=== PATIENT | female | born 1960 | race African-American/Black ===

== ENCOUNTER 2019-12-13 15:41 | Inpatient (IN) | payer MEDICARE ==
[~2019-12-13] VITALS: Ht 147.3 cm; Wt 69.4 kg
--- NOTE | 2019-12-13 15:42 | NUR ---
ED Nurse Note:pt. was BIBA from home with c/o abdominal apin nausea and vomiting
[2019-12-13 16:23] VITALS: BP 110/58
[2019-12-13 16:42] LABS: BASOPHILS % (AUTO) 1.8 % (0.0-2.0); EOSINOPHILS % (AUTO) 1.5 % (0.0-3.0); HEMATOCRIT 30.7 % (37.0-47.0); LYMPHOCYTES % (AUTO) 52.1 % (20.0-45.0); MEAN CORPUSCULAR VOLUME 83 FL (80-99); MONOCYTES % (AUTO) 5.3 % (1.0-10.0); NEUTROPHILS % (AUTO) 39.3 % (45.0-75.0); PLATELET COUNT 137 K/UL (150-450); RED BLOOD COUNT 3.68 M/UL (4.20-5.40); RED CELL DISTRIBUTION WIDTH 13.3 % (11.6-14.8); WHITE BLOOD COUNT 8.8 K/UL (4.8-10.8)
--- NOTE | 2019-12-13 16:52 | Emergency Room Report ---
History of Present Illness General Chief Complaint: Nausea, Vomiting, and Diarrhea Source: Patient Present Illness HPI 59-year-old female presents ED for evaluation. Brought in by EMS. Complaining of vomiting and diarrhea. Cramping pain. History of lupus. History of pancreatitis. States that she was recently admitted at another hospital in [place] and treated for pneumonia. Recently discharged. States she completed her antibiotics. States she has a port for TPN when she has the symptoms. Denies sick contacts or recent travel. No other aggravating relieving factors. Denies any other associated symptoms Allergies: Coded Allergies: ADHESIVE TAPE (Verified Allergy, Unknown, 12/13/19) DROPERIDOL (Verified Allergy, Unknown, 12/13/19) IBUPROFEN (Verified Allergy, Unknown, 12/13/19) LATEX (Verified Allergy, Unknown, 12/13/19) MORPHINE (Verified Allergy, Unknown, 12/13/19) VANCOMYCIN (Verified Allergy, Unknown, 12/13/19) Uncoded Allergies: CONTRAST (Allergy, Unknown, 12/13/19) ERYTHROMYCIN (Allergy, Unknown, 12/13/19) Patient History Past Medical History: DM, HTN, other - lupus Past Surgical History: none Pertinent Family History: none Social History: Denies: smoking, alcohol use, drug use Last Menstrual Period: NA Now: No Immunizations: UTD Reviewed Nursing Documentation: PMH: Agreed; PSxH: Agreed Nursing Documentation-PMH Past Medical History: No Stated History Hx Hypertension: Yes Hx Pacemaker: No Hx Asthma: No Hx COPD: No Hx Diabetes: Yes Hx Cancer: No Hx Gastrointestinal Problems: No Hx Dialysis: No History Of Psychiatric Problem: No Hx Neurological Problems: No Hx Cerebrovascular Accident: No Hx Seizures: No Review of Systems All Other Systems: negative except mentioned in HPI Physical Exam Vital Signs Date Time Temp Pulse Resp B/P (MAP) Pulse Ox O2 Delivery O2 Flow Rate FiO2 12/13/19 15:34 98.8 98 20 110/58 (75) 95 Room Air Sp02 EP Interpretation: reviewed, normal General Appearance: no apparent distress, alert, GCS 15, non-toxic Head: normocephalic, atraumatic Eyes: bilateral eye normal inspection, bilateral eye PERRL ENT: hearing grossly normal, normal pharynx, no angioedema, normal voice Neck: full range of motion, supple/symm/no masses Respiratory: chest non-tender, lungs clear, normal breath sounds, speaking full sentences Cardiovascular #1: regular rate, rhythm, no edema Cardiovascular #2: 2+ carotid (R), 2+ carotid (L), 2+ radial (R), 2+ radial (L) , 2+ dorsalis pedis (R), 2+ dorsalis pedis (L) Gastrointestinal: normal bowel sounds, non tender, soft, non-distended, no guarding, no rebound Rectal: deferred Genitourinary: normal inspection, no CVA tenderness Musculoskeletal: back normal, normal range of motion, gait/station normal, non- tender Neurologic: alert, motor strength/tone normal, oriented x3, sensory intact, responsive, speech normal Psychiatric: judgement/insight normal, memory normal, mood/affect normal, no suicidal/homicidal ideation Reflexes: 3+ bicep (R), 3+ bicep (L), 3+ tricep (R), 3+ tricep (L), 3+ knee (R) , 3+ knee (L) Lymphatic: no adenopathy Medical Decision Making Diagnostic Impression: Primary Impression: Colitis Additional Impressions: Generalized weakness Lupus ER Course Hospital Course 59 yo F presents with vomiting diarrhea. h/o lupus differential gastroenteritis, dehydration, lupus flare Clinical course Placed on stretcher. Initial history physical exam reveals middle-aged female in no acute distress. I ordered labs, IV fluids Labs - no leukocytosis, Hb/Hct stable. electrolytes ok After IV hydration I reassess patient. States that she still feels weak. States that typically when she gets this flareup due to her lupus she requires IV hydration and TPN. Case discussed with Dr. Turcios and he agreed to accept the patient to his service for further care and support I feel this is a highly complex case requiring extensive working including EKG/ Rhythm strip, Xray/CT/US, Blood/urine lab work, repeat exams while in ED, and administration of strong opiates/narcotics for pain control, admission to hospital or close patient follow up. Diagnosis - colitis, generalized weakness, lupus Patient admitted to floor in serious condition Labs Test 12/13/19 16:15 12/13/19 16:20 White Blood Count 8.8 K/UL (4.8-10.8) Red Blood Count 3.68 M/UL (4.20-5.40) Hemoglobin 10.0 G/DL (12.0-16.0) Hematocrit 30.7 % (37.0-47.0) Mean Corpuscular Volume 83 FL (80-99) Mean Corpuscular Hemoglobin 27.2 PG (27.0-31.0) Mean Corpuscular Hemoglobin Concent 32.6 G/DL (32.0-36.0) Red Cell Distribution Width 13.3 % (11.6-14.8) Platelet Count 137 K/UL (150-450) Mean Platelet Volume 7.9 FL (6.5-10.1) Neutrophils (%) (Auto) 39.3 % (45.0-75.0) Lymphocytes (%) (Auto) 52.1 % (20.0-45.0) Monocytes (%) (Auto) 5.3 % (1.0-10.0) Eosinophils (%) (Auto) 1.5 % (0.0-3.0) Basophils (%) (Auto) 1.8 % (0.0-2.0) Sodium Level 145 MMOL/L (136-145) Potassium Level 3.8 MMOL/L (3.5-5.1) Chloride Level 110 MMOL/L (98-107) Carbon Dioxide Level 24 MMOL/L (21-32) Anion Gap 12 mmol/L (5-15) Blood Urea Nitrogen 18 mg/dL (7-18) Creatinine 0.9 MG/DL (0.55-1.30) Estimat Glomerular Filtration Rate > 60 mL/min (>60) Glucose Level 82 MG/DL (74-106) Calcium Level 8.9 MG/DL (8.5-10.1) Total Bilirubin 0.8 MG/DL (0.2-1.0) Aspartate Amino Transf (AST/SGOT) 19 U/L (15-37) Alanine Aminotransferase (ALT/SGPT) 16 U/L (12-78) Alkaline Phosphatase 87 U/L (46-116) Total Protein 7.7 G/DL (6.4-8.2) Albumin 3.9 G/DL (3.4-5.0) Globulin 3.8 g/dL Albumin/Globulin Ratio 1.0 (1.0-2.7) Lipase 66 U/L (73-393) Urine Color Pale yellow Urine Appearance Clear Urine pH 5 (4.5-8.0) Urine Specific [employer] [place] 1.015 (1.005-1.035) Urine Protein Negative (NEGATIVE) Urine Glucose (UA) Negative (NEGATIVE) Urine Ketones Negative (NEGATIVE) Urine Blood 2+ (NEGATIVE) Urine Nitrite Negative (NEGATIVE) Urine Bilirubin Negative (NEGATIVE) Urine Urobilinogen Normal MG/DL (0.0-1.0) Urine Leukocyte Esterase 1+ (NEGATIVE) Urine RBC 5-10 /HPF (0 - 2) Urine WBC 2-4 /HPF (0 - 2) Urine Squamous Epithelial Cells Moderate /LPF (NONE/OCC) Urine Bacteria Few /HPF (NONE) Last Vital Signs Date Time Temp Pulse Resp B/P (MAP) Pulse Ox O2 Delivery O2 Flow Rate FiO2 12/13/19 16:23 98.8 20 110/58 95 Room Air 12/13/19 15:34 98 Status: improved Disposition: ADMITTED INPATIENT Condition: Serious Huan Humphrey MD Dec 13, 2019 16:52
[2019-12-13 16:56] LABS: ANION GAP 12 mmol/L (5-15); BLOOD UREA NITROGEN 18 mg/dL (7-18); CALCIUM 8.9 MG/DL (8.5-10.1); CARBON DIOXIDE 24 MMOL/L (21-32); CHLORIDE 110 MMOL/L (98-107); CREATININE 0.9 MG/DL (0.55-1.30); POTASSIUM 3.8 MMOL/L (3.5-5.1); SODIUM 145 MMOL/L (136-145)
[2019-12-13 16:58] LABS: APPEARANCE,URINE CLEAR; BILIRUBIN, URINE NEGATIVE (NEGATIVE); COLOR,URINE PALE YELLOW; GLUCOSE, URINE (UA) NEGATIVE (NEGATIVE); KETONES,URINE NEGATIVE (NEGATIVE); LEUKOCYTE ESTERASE ,URINE 1+ (NEGATIVE); NITRITE,URINE NEGATIVE (NEGATIVE); PH,URINE 5 (4.5-8.0); PROTEIN,URINE NEGATIVE (NEGATIVE); UROBILINOGEN,URINE NORMAL MG/DL (0.0-1.0)
[2019-12-13 17:01] LABS: ALANINE AMINOTRANSFERASE 16 U/L (12-78); ALBUMIN 3.9 G/DL (3.4-5.0); ALKALINE PHOSPHATASE 87 U/L (46-116); ASPARTATE AMINO TRANSFERASE 19 U/L (15-37); BILIRUBIN,TOTAL 0.8 MG/DL (0.2-1.0)
[2019-12-13] MEDS ORDERED: ELIQUIS5 MG PO (17:45)
[2019-12-13] MEDS ORDERED: OMEPRAZOLE20 M2 ORAL (17:45)
[2019-12-13] MEDS ORDERED: METOPROLOL SUCC25 MG ORAL (17:45)
[2019-12-13] MEDS ORDERED: GABAPENTIN600 MG ORAL (17:45)
[2019-12-13] MEDS ORDERED: VITAMIN D-32000 UNI2 PO (17:45)
[2019-12-13] MEDS ORDERED: FOLIC ACID1 MG ORAL (17:45)
[2019-12-13] MEDS ORDERED: MODAFINIL100 MG ORAL (17:45)
[2019-12-13] MEDS ORDERED: ALBUTEROL SULF8.5 GM INH (17:45)
[2019-12-13] MEDS ORDERED: METHADONE HCL5 MG ORAL (17:45)
[2019-12-13] MEDS ORDERED: BENAZEPRIL HCL10 MG ORAL (17:45)
[2019-12-13] MEDS ORDERED: PRAVASTATIN SOD20 M1 ORAL (17:45)
[2019-12-13] MEDS ORDERED: PANCREASE1 EA ORAL (17:45)
[2019-12-13] MEDS ORDERED: NOVOLOG100 UNIT/4 SQ (17:45)
[2019-12-13] MEDS ORDERED: METFORMIN HCL500 M1 ORAL (17:45)
[2019-12-13] MEDS ORDERED: ASPIR 8181 MG ORAL (17:45)
[2019-12-13] MEDS ORDERED: HYDROXYCHLOROQ200 M1 PO (17:45)
[2019-12-13 18:41] VITALS: BP 111/57
--- NOTE | 2019-12-13 19:30 | NUR ---
ED Nurse Note: Recieved report from amm nurse to resume care, pt in bed resting quietly, awake and oriented x 4, pt on cardiac monitoirng, pt is here for abdominal pain with lupus and waiting for admission to hospital, pt has patent saline lock in right hand, pt c/o having abd pain at 8/10, sharp and aching with nausea, no emesis, will resume care as ordered and closely monitor for any changes, MD informed of pt pain leval and her request for meds.
[2019-12-13 20:00] VITALS: BP 110/64
[2019-12-13] MEDS ORDERED: DiphenhydrAMINE 50mg/ml Inj IVP ONE (20:30)
[2019-12-13] MEDS ORDERED: HYDROmorphone 1mg/ml Carpuject IVP ONE (20:30)
--- NOTE | 2019-12-13 21:15 | NUR ---
ED Nurse Note: Pt medicated for pain with dilaudid, meds effective, pt resulted pain at 0/10 and is sleeping, v/s stable, IV site patent, pt has no cp and no sob or labored breathing noted, pt now being admitted to hospital, report called to floor nurse, all forms completed, pt being taken to unit via gurney with [facility], nad noted during pt transport.
--- NOTE | 2019-12-13 21:27 | NUR ---
NURSE NOTES: Received patient per vickey accompanied by the ER staff. alert and oriented x4. verbally responsive. respirations even and unlabored. no sob. denies any pain or discomfort. with right chest porter cath. an Iv line on the right hand running ns at 200 ml/hr. no skin issues noted. dr. yi put in the admission orders. noted and carried out. patient belongings are on the bedside and was signed by patient. kept clean and dry. provided rest and comfort. bed locked and in lowest position. call light and light button within easy reach. will continue plan of care.
[2019-12-13] MEDS: D5NS 1,000 ML IV SCH (23:04)
[2019-12-14] VITALS (7 sets, daily range): BP systolic 102–135; BP diastolic 55–78
[2019-12-14] MEDS: Albuterol 90mcg Inhaler 8gm INH SCH ×4 (00:24→20:19)
[2019-12-14] MEDS: NovoLOG Insulin Flexpen SUBQ SCH ×4 (06:07→21:00)
--- NOTE | 2019-12-14 07:32 | NUR ---
HAND-OFF: Report given to melida sterling.
--- NOTE | 2019-12-14 08:04 | NUR ---
NURSE NOTES: Patient awake and alert and oriented,respirations unlabored.Patient receiving inhalers via Respiratory therapist as ordered.IV fluids infusing as ordered.patient sitting up in bed breakfst at bedside.Call light within reach.
[2019-12-14] MEDS: Benazepril 10mg tab ORAL SCH (08:39)
[2019-12-14] MEDS: Metoprolol Succinate XL 25mg tab ORAL SCH (08:39)
--- NOTE | 2019-12-14 08:40 | NUR ---
NURSE NOTES: DR Turcios here to see patient aware that patient blood pressure this AM 102/55,hear rate 73. state okay to hold BP medication this AM dose.
[2019-12-14] MEDS: D5NS 1,000 ML IV SCH ×2 (08:43→18:23)
[2019-12-14] MEDS: Aspirin EC 81mg tab ORAL SCH (08:43)
[2019-12-14] MEDS: Eliquis 5mg tablet ORAL SCH ×2 (08:45→18:16)
[2019-12-14] MEDS: metFORMIN 500mg tab ORAL SCH ×3 (08:46→18:00)
[2019-12-14] MEDS: Pancrelipase Dr Cap ORAL SCH ×3 (08:47→18:15)
[2019-12-14 09:05] LABS: ALANINE AMINOTRANSFERASE 16 U/L (12-78); ALBUMIN 3.1 G/DL (3.4-5.0); ALKALINE PHOSPHATASE 74 U/L (46-116); ANION GAP 8 mmol/L (5-15); ASPARTATE AMINO TRANSFERASE 19 U/L (15-37); BILIRUBIN,TOTAL 0.7 MG/DL (0.2-1.0); BLOOD UREA NITROGEN 14 mg/dL (7-18); CALCIUM 7.7 MG/DL (8.5-10.1); CARBON DIOXIDE 26 MMOL/L (21-32); CHLORIDE 114 MMOL/L (98-107); CREATININE 0.8 MG/DL (0.55-1.30); POTASSIUM 4.2 MMOL/L (3.5-5.1); SODIUM 148 MMOL/L (136-145)
--- NOTE | 2019-12-14 09:45 | History and Physical Report ---
DATE OF ADMISSION: 12/13/2019 CHIEF COMPLAINT: Cough, congestion, chest pain, bloody diarrhea. HISTORY OF PRESENT ILLNESS: The patient is a 59-year-old female. She has a complicated past medical history, which includes a history of lupus, type 2 diabetes, pancreatitis, rheumatoid arthritis, DVT. She is currently visiting from [place] to visit family members. Over the last week and half, she has had worsening cough and congestion. She states that 5 weeks ago, she was treated for pneumonia. She had similar symptoms then and symptoms resolved, but her symptoms returned. Over the last one and half weeks, they have got progressively worse. In addition to her cough and chest pain, she has had worsening diarrhea with episodes of bleeding. She denies any prior history of ulcers. She is on Eliquis for prior history of DVT that was diagnosed approximately 5 months ago. In the ER, her labs were relatively unremarkable. Her hemoglobin was 10. White count was normal. CMP was also unremarkable. In light of her bleeding, cough, congestion, and chest pain, she is admitted for further evaluation and care. PAST MEDICAL HISTORY: As above. The patient has a history of pancreatitis. PAST SURGICAL HISTORY: Includes cholecystectomy. CURRENT MEDICATIONS: Reconciled and reviewed. ALLERGIES: The patient is allergic to tape, contrast, droperidol, erythromycin, ibuprofen, latex, morphine, and vancomycin. FAMILY HISTORY: Noncontributory. SOCIAL HISTORY: Negative for tobacco, ethanol, or drugs. REVIEW OF SYSTEMS: GENERAL: Positive fevers and chills, but no night sweats. HEENT: No headaches or visual changes. CARDIOPULMONARY: Positive chest pain, cough, and congestion. GASTROINTESTINAL: Positive abdominal pain and bloody stool. GENITOURINARY: No urgency or frequency. MUSCULOSKELETAL: Positive joint pain. NEUROLOGIC: No evidence of seizures. PHYSICAL EXAMINATION: VITAL SIGNS: Temperature 98.4, pulse 68, respirations 20, blood pressure 102/55. GENERAL: The patient is well developed, in no apparent distress. HEART: Regular rate and rhythm. LUNGS: Clear. ABDOMEN: Soft. Mildly distended. Mildly tender to palpation. There is no rebound or guarding. EXTREMITIES: No clubbing, cyanosis, or edema. LABORATORY DATA: UA showed 5 to 10 rbc's, no wbc's. White count 8, hemoglobin 10, hematocrit 30, platelets of 137. Sodium 145, potassium 3.8. Lipase 66. ASSESSMENT: This is a 59-year-old female with a history of lupus, diabetes, pancreatitis, rheumatoid arthritis, DVT admitted with complaints of cough, congestion, abdominal pain, and bloody diarrhea. Possibilities could include pneumonia versus bronchitis. DVT is less likely as the patient is on anticoagulation. She may have pancreatitis although her lipase is normal. PLAN: IV hydration. Check stool for occult blood. We will monitor for further bleeding. We will continue Eliquis with caution. CT scan of the abdomen will be ordered. We will also order a sedimentation rate and CRP. Cardiology and GI consultations to be obtained. The patient should be started on empiric antibiotic therapy for possible community-acquired pneumonia. Charles Turcios M.D. DR: HELLEN JOB#: [id number] CC:
[2019-12-14] MEDS: cefTRIAXone 1 GM in D5W 55 ML IVPB SCH (11:50)
--- NOTE | 2019-12-14 12:31 | Diagnostic Imaging Report ---
EXAM: CT Abdomen and Pelvis Without Intravenous Contrast CLINICAL HISTORY: ABD PAIN TECHNIQUE: Axial computed tomography images of the abdomen and pelvis without intravenous contrast. CTDI is 16.8 mGy and DLP is 1153.3 mGy-cm. One or more of the following dose reduction techniques were used: automated exposure control, adjustment of the mA and/or kV according to patient size, use of iterative reconstruction technique. COMPARISON: No relevant prior studies available. FINDINGS: ABDOMEN: Liver: Unremarkable Gallbladder and bile ducts: Cholecystectomy. Pancreas: Unremarkable. Spleen: Unremarkable. Adrenals: Unremarkable. Kidneys and ureters: No renal calculi or obstructive changes. Stomach and bowel: Distal stomach is underdistended and not well assessed. Could not exclude underlying thickening No clarisse colitis. PELVIS: Appendix: Appendix not identified. Bladder: Under distended and thickened bladder. Reproductive: Heterogeneous uterus. ABDOMEN and PELVIS: Intraperitoneal space: Small amount of fluid in the pelvis. Bones/joints: No acute fracture. Soft tissues: Subcutaneous edema in the back. Vasculature: Unremarkable. No abdominal aortic aneurysm. Lymph nodes: No enlarged lymph nodes. IMPRESSION: Appendix not identified. No clarisse colitis EXAM: CT Chest Without Intravenous Contrast CLINICAL HISTORY: ABD PAIN TECHNIQUE: Axial computed tomography images of the chest without intravenous contrast. CTDI is 16.8 mGy and DLP is 1153.3 mGy-cm. One or more of the following dose reduction techniques were used: automated exposure control, adjustment of the mA and/or kV according to patient size, use of iterative reconstruction technique. COMPARISON: No relevant prior studies available. FINDINGS: Lungs: Consolidative atelectasis in the lower lung [place]. Pleural space: Unremarkable. No pneumothorax. No effusion. Heart: Cardiomegaly. Bones/joints: No acute fracture. Soft tissues: Unremarkable. Vasculature: Unremarkable. No thoracic aortic aneurysm. Lymph nodes: Mediastinal and probable hilar adenopathy. Tubes, lines and devices: Port-A-Cath. IMPRESSION: Consolidative atelectasis in the lower lung [place].
--- NOTE | 2019-12-14 16:04 | NUR ---
CASE MANAGEMENT: REVIEW 59 YEAR OLD FEMALE CC: WEAKNESS . N/V/D . HX LUPUS SI: LUPUS . COLITIS T 98.8 HR 98 RR 20 BP 110/58 SAT 95% ROOM AIR H/H 10.0/30.7 NA 148 GLUCOSE 71 LIPASE 66 IS: NS IVF BOLUS X1 BENADRYL 25MG IV X1 DILAUDID 1MG IV X1 PATIENT ADMITTED TO MED/SURG UNIT 12/13/2019 DCP: PATIENT IS FROM HOME
--- NOTE | 2019-12-14 18:45 | NUR ---
NURSE NOTES: Patient resting, patient state she is having diarrhea and states she takes Lomotil for diarrhea and requesting for medication to be ordered.Will notify DR of patient request.
--- NOTE | 2019-12-14 19:40 | NUR ---
HAND-OFF: Report given to Stefanie MATHEW.
--- NOTE | 2019-12-14 20:00 | NUR ---
NURSE NOTES: Patient received in bed, asleep, arousable. aox4. C/o multiple loose stools during the day, requesting for lomotil. AM shift paged , awaiting call back. No acute distress at this time. Hat provided in the bathroom, patient aware of stool collection. Will continue plan of care.
[2019-12-14] MEDS ORDERED: Lomotil 2.5mg tab ORAL PRN ×2 (21:30)
--- NOTE | 2019-12-14 21:30 | NUR ---
NURSE NOTES: Received order from Dr. Schaefer. Collect next loose stool for ciff. Then, lomotil 1x dose of 2 tabs lomotil after the next loose stool. 1 tab lomotil q4h prn as needed thereafter. Patient made aware. Will carry out orders.
[2019-12-15] VITALS: BP 136/70
[2019-12-15] MEDS: Albuterol 90mcg Inhaler 8gm INH SCH ×4 (02:02→19:24)
[2019-12-15] MEDS: D5NS 1,000 ML IV SCH ×2 (03:04→14:26)
[2019-12-15 04:00] VITALS: BP 122/60
[2019-12-15] MEDS: NovoLOG Insulin Flexpen SUBQ SCH ×4 (06:13→21:00)
--- NOTE | 2019-12-15 07:17 | NUR ---
HAND-OFF: Report given to Patricia MATHEW.
[2019-12-15 07:29] LABS: BASOPHILS % (AUTO) 1.4 % (0.0-2.0); HEMATOCRIT 28.7 % (37.0-47.0); HEMOGLOBIN 9.2 G/DL (12.0-16.0); LYMPHOCYTES % (AUTO) 49.9 % (20.0-45.0); MEAN CORPUSCULAR VOLUME 84 FL (80-99); MONOCYTES % (AUTO) 8.6 % (1.0-10.0); NEUTROPHILS % (AUTO) 37.1 % (45.0-75.0); PLATELET COUNT 125 K/UL (150-450); RED BLOOD COUNT 3.41 M/UL (4.20-5.40); RED CELL DISTRIBUTION WIDTH 13.5 % (11.6-14.8); WHITE BLOOD COUNT 4.4 K/UL (4.8-10.8)
--- NOTE | 2019-12-15 07:30 | NUR ---
NURSE NOTES: Patient awake and alert and oriented,IV fluids infusing as ordered.Breakfast at bed side.Call light within reach.No concerns at this time.
[2019-12-15 08:39] VITALS: BP 144/73
[2019-12-15] MEDS: Metoprolol Succinate XL 25mg tab ORAL SCH (08:44)
[2019-12-15] MEDS: Pancrelipase Dr Cap ORAL SCH ×3 (08:51→18:18)
[2019-12-15] MEDS: metFORMIN 500mg tab ORAL SCH ×3 (08:54→18:00)
[2019-12-15] MEDS: Benazepril 10mg tab ORAL SCH (08:54)
[2019-12-15] MEDS: cefTRIAXone 1 GM in D5W 55 ML IVPB SCH (08:58)
[2019-12-15] MEDS: Aspirin EC 81mg tab ORAL SCH (09:12)
[2019-12-15] MEDS: Eliquis 5mg tablet ORAL SCH ×2 (09:15→18:18)
[2019-12-15] MEDS: HYDROmorphone 1mg/ml Carpuject IVP PRN (11:25)
[2019-12-15 12:00] VITALS: BP 153/87
--- NOTE | 2019-12-15 14:40 | General Progress Note ---
Assessment/Plan Problem List: (1) Generalized weakness ICD Codes: R53.1 - Weakness SNOMED: 93079812 (2) Colitis ICD Codes: K52.9 - Noninfective gastroenteritis and colitis, unspecified SNOMED: 40207506 (3) Lupus ICD Codes: M32.9 - Systemic lupus erythematosus, unspecified SNOMED: 612069995 Status: stable, progressing Assessment/Plan: ivf pain rx antiemetics monitor labs Subjective ROS Limited/Unobtainable: No Constitutional: Reports: malaise, weakness HEENT: Reports: no symptoms Cardiovascular: Reports: no symptoms Respiratory: Reports: no symptoms Gastrointestinal/Abdominal: Reports: abdominal pain, blood in stool Genitourinary: Reports: no symptoms Neurologic/Psychiatric: Reports: no symptoms Endocrine: Reports: no symptoms Hematologic/Lymphatic: Reports: no symptoms Allergies: Coded Allergies: ADHESIVE TAPE (Verified Allergy, Unknown, 12/13/19) DROPERIDOL (Verified Allergy, Unknown, 12/13/19) IBUPROFEN (Verified Allergy, Unknown, 12/13/19) LATEX (Verified Allergy, Unknown, 12/13/19) MORPHINE (Verified Allergy, Unknown, 12/13/19) VANCOMYCIN (Verified Allergy, Unknown, 12/13/19) Uncoded Allergies: CONTRAST (Allergy, Unknown, 12/13/19) ERYTHROMYCIN (Allergy, Unknown, 12/13/19) All Systems: reviewed and negative except above Subjective no events. better today. no bleeding noted. CT negative. labs reviewed. Objective Last 24 Hour Vital Signs Date Time Temp Pulse Resp B/P (MAP) Pulse Ox O2 Delivery O2 Flow Rate FiO2 12/15/19 13:05 68 20 96 Room Air 21 12/15/19 13:05 68 20 96 Room Air 21 12/15/19 12:00 98.4 80 20 153/87 (109) 97 12/15/19 09:20 Room Air 12/15/19 08:54 144/73 12/15/19 08:44 67 144/73 12/15/19 08:39 98.2 67 18 144/73 (96) 100 12/15/19 07:53 67 20 96 Room Air 21 12/15/19 07:52 64 20 94 Room Air 21 12/15/19 04:00 97.9 68 18 122/60 (80) 99 12/15/19 02:03 66 18 97 Room Air 21 12/15/19 02:00 65 18 97 Room Air 21 12/15/19 00:00 97.6 68 19 136/70 (92) 99 12/14/19 21:00 Room Air 12/14/19 20:21 56 18 97 Room Air 21 12/14/19 20:19 55 16 97 Room Air 21 12/14/19 20:00 98.0 61 19 124/62 (82) 100 12/14/19 16:00 98.4 55 18 135/61 (85) 99 Intake and Output 12/14/19 12/15/19 19:00 07:00 Intake Total 1100 ml 2700 ml Balance 1100 ml 2700 ml Intake Oral 400 ml IV Total 1100 ml 1100 ml Other 1200 ml # Voids 4 Laboratory Tests 12/15/19 06:30: White Blood Count 4.4L, Red Blood Count 3.41L, Hemoglobin 9.2L, Hematocrit 28.7L , Mean Corpuscular Volume 84, Mean Corpuscular Hemoglobin 27.1, Mean Corpuscular Hemoglobin Concent 32.1, Red Cell Distribution Width 13.5, Platelet Count 125L, Mean Platelet Volume 8.0, Neutrophils (%) (Auto) 37.1L, Lymphocytes (%) (Auto) 49.9H, Monocytes (%) (Auto) 8.6, Eosinophils (%) (Auto) 3.0, Basophils (%) (Auto) 1.4 Height (Feet): 4 Height (Inches): 10.00 Weight (Pounds): 148 General Appearance: WD/WN, alert Neck: supple Cardiovascular: normal peripheral pulses, normal rate, regular rhythm Respiratory/Chest: chest wall non-tender, lungs clear, normal breath sounds, no respiratory distress Abdomen: normal bowel sounds, non tender, soft, no organomegaly Edema: no edema noted Arm (L), no edema noted Arm (R), no edema noted Leg (L), no edema noted Leg (R), no edema noted Pedal (L), no edema noted Pedal (R), no edema noted Generalized Neurologic: medical assistant internal medicine II-XII grossly normal, alert, oriented x 3, responsive Charles Turcios MD Dec 15, 2019 14:39
[2019-12-15 16:00] VITALS: BP 135/66
[2019-12-15] MEDS: Potassium Chloride 10 MEQ in D5 1/2NS 1,000 ML IV SCH (18:13)
--- NOTE | 2019-12-15 19:02 | NUR ---
NURSE NOTES: Patient resting,patient feeling better,patient had one episode of nausea with vomiting and pain earlier today with relief with PRN medication.IV continues to infuse.call light within reach.
--- NOTE | 2019-12-15 19:42 | NUR ---
HAND-OFF: Report given to Stefanie MATHEW.
[2019-12-15 20:00] VITALS: BP 115/66
--- NOTE | 2019-12-15 20:00 | NUR ---
NURSE NOTES: Patient received in bed, asleep, appears in no acute distress. IVF infusing. Will continue to monitor.
[2019-12-16] VITALS: BP 118/60
--- NOTE | 2019-12-16 00:38 | NUR ---
NURSE NOTES: Pt reported 5/10 abdominal pain. Offered to give dilaudid prn. Patient stated that she is just trying to calm her stomach down from emesis episode in the afternoon yesterday. Apple juice helps her. Advised patient to call for RN if she changes her mind about pain medication. Verbalized understanding.
[2019-12-16] MEDS: Albuterol 90mcg Inhaler 8gm INH SCH ×4 (01:32→21:07)
[2019-12-16] MEDS: HYDROmorphone 1mg/ml Carpuject IVP PRN (02:52)
[2019-12-16 04:00] VITALS: BP 136/76
[2019-12-16] MEDS: Potassium Chloride 10 MEQ in D5 1/2NS 1,000 ML IV SCH ×2 (06:13→17:55)
[2019-12-16] MEDS: NovoLOG Insulin Flexpen SUBQ SCH ×4 (06:18→21:00)
--- NOTE | 2019-12-16 07:37 | NUR ---
HAND-OFF: Report given to Laure MATHEW.
--- NOTE | 2019-12-16 07:45 | NUR ---
NURSE NOTES: Patient alert x4; on room air, no sing of distress and shortness of breath; no sing of chest pain IV Right-Hand 22G D51/2NS 20mEq @ 75cc; no diarrhea, needs to collect OB stool, sing at the bed side, patine aware, hut provided; side rails up x2, breaks engaged, bed at lowest position; call light within reach; will keep monitoring.
[2019-12-16 08:00] VITALS: BP 107/79
--- NOTE | 2019-12-16 08:39 | General Progress Note ---
Assessment/Plan Problem List: (1) Generalized weakness ICD Codes: R53.1 - Weakness SNOMED: 75435174 (2) Colitis ICD Codes: K52.9 - Noninfective gastroenteritis and colitis, unspecified SNOMED: 91095824 (3) Lupus ICD Codes: M32.9 - Systemic lupus erythematosus, unspecified SNOMED: 692656611 Status: stable, progressing Assessment/Plan: ivf pain rx antiemetics monitor labs consider steroids gi eval Subjective ROS Limited/Unobtainable: No Constitutional: Reports: malaise, weakness HEENT: Reports: no symptoms Cardiovascular: Reports: no symptoms Respiratory: Reports: no symptoms Gastrointestinal/Abdominal: Reports: abdominal pain Genitourinary: Reports: no symptoms Neurologic/Psychiatric: Reports: no symptoms Endocrine: Reports: no symptoms Hematologic/Lymphatic: Reports: no symptoms Allergies: Coded Allergies: ADHESIVE TAPE (Verified Allergy, Unknown, 12/13/19) DROPERIDOL (Verified Allergy, Unknown, 12/13/19) IBUPROFEN (Verified Allergy, Unknown, 12/13/19) LATEX (Verified Allergy, Unknown, 12/13/19) MORPHINE (Verified Allergy, Unknown, 12/13/19) VANCOMYCIN (Verified Allergy, Unknown, 12/13/19) Uncoded Allergies: CONTRAST (Allergy, Unknown, 12/13/19) ERYTHROMYCIN (Allergy, Unknown, 12/13/19) All Systems: reviewed and negative except above Subjective no events. c/o abd pain today. no bleeding noted. CT negative. labs reviewed. thinks its her "vasculitis." Objective Last 24 Hour Vital Signs Date Time Temp Pulse Resp B/P (MAP) Pulse Ox O2 Delivery O2 Flow Rate FiO2 12/16/19 08:00 75 18 96 Room Air 21 12/16/19 07:59 72 20 95 Room Air 21 12/16/19 04:00 97.4 70 21 136/76 (96) 97 12/16/19 01:34 70 18 96 Room Air 21 12/16/19 01:32 70 18 96 Room Air 21 12/16/19 00:00 97.2 80 20 118/60 (79) 97 12/15/19 21:00 Room Air 12/15/19 20:00 97.5 82 20 115/66 (82) 97 12/15/19 19:26 70 18 95 Room Air 21 12/15/19 19:24 70 18 95 Room Air 21 12/15/19 16:00 99.2 71 18 135/66 (89) 97 12/15/19 13:05 68 20 96 Room Air 21 12/15/19 13:05 68 20 96 Room Air 21 12/15/19 12:00 98.4 80 20 153/87 (109) 97 12/15/19 09:20 Room Air 12/15/19 08:54 144/73 12/15/19 08:44 67 144/73 12/15/19 08:39 98.2 67 18 144/73 (96) 100 Intake and Output 12/15/19 12/16/19 19:00 07:00 Intake Total 565 ml 1225 ml Balance 565 ml 1225 ml Intake Oral 240 ml 400 ml IV Total 325 ml 825 ml # Voids 2 3 Laboratory Tests 12/16/19 07:43: Sodium Level [Pending], Potassium Level [Pending], Chloride Level [Pending], Carbon Dioxide Level [Pending], Blood Urea Nitrogen [Pending], Creatinine [ Pending], Estimat Glomerular Filtration Rate [Pending], Glucose Level [Pending] , Calcium Level [Pending], Total Bilirubin [Pending], Aspartate Amino Transf ( AST/SGOT) [Pending], Alanine Aminotransferase (ALT/SGPT) [Pending], Alkaline Phosphatase [Pending], Total Protein [Pending], Albumin [Pending], Globulin [ Pending] Height (Feet): 4 Height (Inches): 10.00 Weight (Pounds): 148 General Appearance: WD/WN, alert Neck: supple Cardiovascular: normal rate, regular rhythm Respiratory/Chest: chest wall non-tender, lungs clear, normal breath sounds, no respiratory distress, no accessory muscle use Abdomen: normal bowel sounds, non tender, soft, no organomegaly, no mass Edema: no edema noted Arm (L), no edema noted Arm (R), no edema noted Leg (L), no edema noted Leg (R), no edema noted Pedal (L), no edema noted Pedal (R), no edema noted Generalized Neurologic: geospatial extractor analysis II-XII grossly normal, alert, oriented x 3, responsive Charles Turcios MD Dec 16, 2019 08:38
[2019-12-16] MEDS: Benazepril 10mg tab ORAL SCH (08:41)
[2019-12-16] MEDS: Metoprolol Succinate XL 25mg tab ORAL SCH (08:42)
[2019-12-16] MEDS: Pancrelipase Dr Cap ORAL SCH ×3 (08:42→17:54)
[2019-12-16] MEDS: Eliquis 5mg tablet ORAL SCH ×2 (08:43→17:54)
[2019-12-16] MEDS: Aspirin EC 81mg tab ORAL SCH (08:43)
[2019-12-16] MEDS: cefTRIAXone 1 GM in NS 55 ML IVPB SCH (08:44)
[2019-12-16] MEDS: metFORMIN 500mg tab ORAL SCH ×3 (08:44→17:54)
[2019-12-16 09:02] LABS: ALANINE AMINOTRANSFERASE 15 U/L (12-78); ALBUMIN 3.5 G/DL (3.4-5.0); ALBUMIN/GLOBULIN RATIO 0.9 (1.0-2.7); ALKALINE PHOSPHATASE 85 U/L (46-116); ANION GAP 4 mmol/L (5-15); ASPARTATE AMINO TRANSFERASE 14 U/L (15-37); BILIRUBIN,TOTAL 0.4 MG/DL (0.2-1.0); BLOOD UREA NITROGEN 4 mg/dL (7-18); CALCIUM 8.2 MG/DL (8.5-10.1); CARBON DIOXIDE 27 MMOL/L (21-32); CHLORIDE 110 MMOL/L (98-107); CREATININE 0.8 MG/DL (0.55-1.30); POTASSIUM 3.7 MMOL/L (3.5-5.1); SODIUM 141 MMOL/L (136-145)
[2019-12-16 12:00] VITALS: BP 130/65
[2019-12-16 16:00] VITALS: BP 120/72
--- NOTE | 2019-12-16 17:03 | NUR ---
CASE MANAGEMENT: REVIEW 12/15/2019 SI: LUPUS . COLITIS 99.2 71 18 135/66 97% ROOM AIR WBC 4.4 H/H 9.2/28.7 CL- 110 CA+8.2 IS: IV ROCEPHIN QD IV KCL @75ML/HR TOPROL XL PO QD LOTENSIN PO QD ZENPEP PO TID METHADONE PO Q8HR GABAPENTIN PO TID METFORMIN PO TID ELIQUIS PO BID ASPIRIN PO QD : 4E MED SURG UNIT DCP: PATIENT IS FROM HOME CASE MANAGEMENT: REVIEW 12/16/2019 SI: LUPUS . COLITIS 98.2 61 17 120/72 98% ROOM AIR WBC 4.4 H/H 9.2/28.7 CL- 110 CA+8.2 IS: IV ROCEPHIN QD IV KCL @75ML/HR TOPROL XL PO QD LOTENSIN PO QD ZENPEP PO TID METHADONE PO Q8HR GABAPENTIN PO TID METFORMIN PO TID ELIQUIS PO BID ASPIRIN PO QD : 4E MED SURG UNIT DCP: PATIENT IS FROM HOME Addendum: 12/16/19 at 1713 by EVANGELINA CAMPOS LVN CASE MANAGEMENT: REVIEW 12/15/2019 SI: LUPUS . COLITIS 99.2 71 18 135/66 97% ROOM AIR IS: IV ROCEPHIN QD IV KCL @75ML/HR TOPROL XL PO QD LOTENSIN PO QD ZENPEP PO TID METHADONE PO Q8HR GABAPENTIN PO TID METFORMIN PO TID ELIQUIS PO BID ASPIRIN PO QD : 4E MED SURG UNIT DCP: PATIENT IS FROM HOME CASE MANAGEMENT: REVIEW 12/16/2019 SI: LUPUS . COLITIS 98.2 61 17 120/72 98% ROOM AIR WBC 4.4 H/H 9.2/28.7 CL- 110 CA+8.2 IS: IV ROCEPHIN QD IV KCL @75ML/HR TOPROL XL PO QD LOTENSIN PO QD ZENPEP PO TID METHADONE PO Q8HR GABAPENTIN PO TID METFORMIN PO TID ELIQUIS PO BID ASPIRIN PO QD : 4E MED SURG UNIT DCP: PATIENT IS FROM HOME
--- NOTE | 2019-12-16 19:10 | NUR ---
HAND-OFF: Report given to PRIYANKA Rodriguez.
--- NOTE | 2019-12-16 19:21 | NUR ---
HAND-OFF: Report given to PRIYANKA Rodriguez.
[2019-12-16 20:00] VITALS: BP 129/83
[2019-12-17] VITALS: BP 113/60
[2019-12-17] MEDS: Albuterol 90mcg Inhaler 8gm INH SCH ×4 (01:00→21:31)
[2019-12-17 04:00] VITALS: BP 117/51
[2019-12-17] MEDS: NovoLOG Insulin Flexpen SUBQ SCH ×4 (06:30→21:00)
--- NOTE | 2019-12-17 07:14 | NUR ---
NURSE NOTES: Patient awake, alert x4; on room air, no sing of distress and shortness of breath; no sing of chest pain; IV Left For-Arm 22G fluid running; OB stool called by PM nurse, waiting for results; family members at the bed side; side rails up x2, breaks engaged, bed at lowest position; call light within reach; patient is asking anti diarrhea medication, will give Lomotil as needed;
--- NOTE | 2019-12-17 07:38 | NUR ---
HAND-OFF: Report given to PRIYANKA Kelsey. Patient is in stable condition. Endorsed plan of care.
[2019-12-17 08:00] VITALS: BP 119/69
[2019-12-17] MEDS: Aspirin EC 81mg tab ORAL SCH (08:20)
[2019-12-17] MEDS: Benazepril 10mg tab ORAL SCH (08:20)
[2019-12-17] MEDS: Pancrelipase Dr Cap ORAL SCH ×3 (08:20→17:26)
[2019-12-17] MEDS: Metoprolol Succinate XL 25mg tab ORAL SCH (08:20)
[2019-12-17] MEDS: metFORMIN 500mg tab ORAL SCH ×3 (08:21→17:26)
[2019-12-17] MEDS: Eliquis 5mg tablet ORAL SCH ×2 (08:21→17:25)
[2019-12-17] MEDS: cefTRIAXone 1 GM in NS 55 ML IVPB SCH (08:22)
[2019-12-17] MEDS: Potassium Chloride 10 MEQ in D5 1/2NS 1,000 ML IV SCH ×2 (09:32→21:53)
[2019-12-17 12:00] VITALS: BP 120/70
--- NOTE | 2019-12-17 14:39 | NUR ---
*-* INSURANCE *-* ALL CLINICALS AND REVIEWS HAVE BEEN FAXED TO: ELLIOT HARRIS:EDA REF# [id number] P: [phone] OPT. 2 EXT. [id number] F: [phone]
[2019-12-17 16:00] VITALS: BP 122/80
--- NOTE | 2019-12-17 18:12 | NUR ---
NURSE NOTES: After patient had dinner, I communicated MD Turcios that patient still feels nauseated and having diarrhea; waiting for order.
--- NOTE | 2019-12-17 19:05 | NUR ---
NURSE NOTES: I received an order from MD Turcios to witness the emesis and diarrhea that patient states that she had; I endorsed to PM nurse Tamar;
--- NOTE | 2019-12-17 19:18 | NUR ---
HAND-OFF: Report given to PRIYANKA Rodriguez.
--- NOTE | 2019-12-17 19:30 | NUR ---
NURSE NOTES: RECEIVED PATIENT FROM PRIYANKA BARNEY. PT IS AWAKE, AAOX4, ON ROOM AIR, NO ACUTE DISTRESS NOTED. IV INTACT. BED IS LOCKED AND LOW, BED ALARMS ACTIVE, SIDE RAILS UPX2 AND CALL LIGHT IS WITHIN REACH. WILL CONTINUE TO MONITOR.
[2019-12-17 20:00] VITALS: BP 137/54
[2019-12-18] VITALS: BP 126/66
[2019-12-18] MEDS: Albuterol 90mcg Inhaler 8gm INH SCH ×4 (01:03→20:56)
--- NOTE | 2019-12-18 02:30 | Discharge Summary ---
DATE OF ADMISSION: 12/13/2019 DATE OF DISCHARGE: 12/17/2019 ADMISSION DIAGNOSES: 1. Abdominal pain. 2. Possible lupus flare. 3. Bronchitis. 4. Diarrhea. 5. History of rheumatoid arthritis. 6. Diabetes. DISCHARGE DIAGNOSES: 1. Abdominal pain. 2. Possible lupus flare. 3. Bronchitis. 4. Diarrhea. 5. History of rheumatoid arthritis. 6. Diabetes. HOSPITAL COURSE: The patient is a pleasant female, admitted with complaints of cough, congestion, some diarrhea. She was admitted. She received IV hydration. continued. She had no further episodes of bleeding. A CT scan of the abdomen was unremarkable. The patient on discharge was improved, she will be discharged home. We will follow up with her PMD in one week. DISCHARGE MEDICATIONS: Please see discharge medication list for discharge medications. DIET: Cardiac diabetic diet. ACTIVITIES: Ad-carl. Charles Turcios M.D. DR: BEULAH JOB#: [id number] CC:
[2019-12-18 04:00] VITALS: BP 120/70
[2019-12-18] MEDS: NovoLOG Insulin Flexpen SUBQ SCH ×4 (06:30→21:00)
--- NOTE | 2019-12-18 06:30 | NUR ---
NURSE NOTES: RECTUM BLEEDING NOTED. INFORMED DR. VAUGHN.
--- NOTE | 2019-12-18 07:07 | NUR ---
NURSE NOTES: Patient awake, alert x4; on room air, no sing of distress and shortness of breath; IV Left For-Arm 22G D51/1RD48dSu @75cc; will check blood sugar as scheduled; side rails up x2, breaks engaged, bed at lowest position; call light within reach; will keep monitoring.
--- NOTE | 2019-12-18 07:23 | NUR ---
HAND-OFF: Report given to PRIYANKA Kelsey. Patient in stable condition. Endorsed plan of care.
--- NOTE | 2019-12-18 07:27 | General Progress Note ---
Assessment/Plan Problem List: (1) Generalized weakness ICD Codes: R53.1 - Weakness SNOMED: 81536678 (2) Colitis ICD Codes: K52.9 - Noninfective gastroenteritis and colitis, unspecified SNOMED: 93706211 (3) Lupus ICD Codes: M32.9 - Systemic lupus erythematosus, unspecified SNOMED: 123621030 Status: stable, progressing Assessment/Plan: ivf check cbc this am dc eliquis gi eval pain rx antiemetics monitor labs consider steroids Subjective ROS Limited/Unobtainable: No Constitutional: Reports: malaise, weakness HEENT: Reports: no symptoms Cardiovascular: Reports: no symptoms Respiratory: Reports: no symptoms Gastrointestinal/Abdominal: Reports: abdominal pain, rectal bleeding Genitourinary: Reports: no symptoms Neurologic/Psychiatric: Reports: no symptoms Endocrine: Reports: no symptoms Hematologic/Lymphatic: Reports: no symptoms Allergies: Coded Allergies: ADHESIVE TAPE (Verified Allergy, Unknown, 12/13/19) DROPERIDOL (Verified Allergy, Unknown, 12/13/19) IBUPROFEN (Verified Allergy, Unknown, 12/13/19) LATEX (Verified Allergy, Unknown, 12/13/19) MORPHINE (Verified Allergy, Unknown, 12/13/19) VANCOMYCIN (Verified Allergy, Unknown, 12/13/19) Uncoded Allergies: CONTRAST (Allergy, Unknown, 12/13/19) ERYTHROMYCIN (Allergy, Unknown, 12/13/19) All Systems: reviewed and negative except above Subjective dc held yesterday due to vomiting and bloody diarrhea. c/o abd pain. not taking pain meds. Objective Last 24 Hour Vital Signs Date Time Temp Pulse Resp B/P (MAP) Pulse Ox O2 Delivery O2 Flow Rate FiO2 12/18/19 04:00 98.7 62 20 120/70 (87) 97 12/18/19 01:04 72 16 97 Room Air 21 12/18/19 01:03 71 16 97 Room Air 21 12/18/19 00:00 98.1 78 20 126/66 (86) 97 12/17/19 21:33 74 16 98 Room Air 21 12/17/19 21:32 73 16 98 Room Air 21 12/17/19 21:00 Room Air 12/17/19 20:00 97.8 71 20 137/54 (81) 97 12/17/19 16:00 98.5 80 18 122/80 (94) 100 1/28/20 13:42 70 18 96 Room Air 21 12/17/19 13:41 70 16 96 Room Air 21 12/17/19 12:00 98.6 82 17 120/70 (87) 98 12/17/19 09:00 Room Air 12/17/19 08:20 71 119/69 12/17/19 08:20 119/69 12/17/19 08:00 98.7 71 18 119/69 (86) 99 12/17/19 07:51 77 18 97 Room Air 21 12/17/19 07:49 73 18 97 Room Air 21 Intake and Output 12/17/19 12/18/19 19:00 07:00 Intake Total 860 ml 1500 ml Balance 860 ml 1500 ml Intake Oral 900 ml IV Total 860 ml 600 ml # Voids 9 # Bowel Movements 4 Height (Feet): 4 Height (Inches): 10.00 Weight (Pounds): 153 Objective General Appearance: WD/WN, alert Neck: supple Cardiovascular: normal rate, regular rhythm Respiratory/Chest: chest wall non-tender, lungs clear, normal breath sounds, no respiratory distress, no accessory muscle use Abdomen: normal bowel sounds, non tender, soft, no organomegaly, no mass Edema: no edema noted Arm (L), no edema noted Arm (R), no edema noted Leg (L), no edema noted Leg (R), no edema noted Pedal (L), no edema noted Pedal (R), no edema noted 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
--- NOTE | 2019-12-18 07:48 | NUR ---
NURSE NOTES: RECEIVED PATIENT FROM PRIYANKA BARNEY. PT IS AWAKE, AAOX4, ON ROOM AIR, NO ACUTE DISTRESS NOTED. IV INTACT. BED IS LOCKED AND LOW, BED ALARMS ACTIVE, SIDE RAILS UPX2 AND CALL LIGHT IS WITHIN REACH. WILL CONTINUE TO MONITOR. Addendum: 12/18/19 at 0749 by Tamar Rodriguez RN WRONG TIME STAMP. PLEASE DISREGARD.
[2019-12-18 08:00] VITALS: BP 145/72
[2019-12-18] MEDS: Benazepril 10mg tab ORAL SCH (08:11)
[2019-12-18] MEDS: metFORMIN 500mg tab ORAL SCH ×3 (08:11→17:24)
[2019-12-18] MEDS: Aspirin EC 81mg tab ORAL SCH (08:12)
[2019-12-18] MEDS: Pancrelipase Dr Cap ORAL SCH ×3 (08:12→17:24)
[2019-12-18] MEDS: Metoprolol Succinate XL 25mg tab ORAL SCH (08:12)
[2019-12-18] MEDS: cefTRIAXone 1 GM in NS 55 ML IVPB SCH (08:13)
[2019-12-18 08:55] LABS: EOSINOPHILS % (AUTO) 3.1 % (0.0-3.0); HEMATOCRIT 31.9 % (37.0-47.0); HEMOGLOBIN 10.1 G/DL (12.0-16.0); LYMPHOCYTES % (AUTO) 49.1 % (20.0-45.0); MEAN CORPUSCULAR VOLUME 84 FL (80-99); MONOCYTES % (AUTO) 7.7 % (1.0-10.0); NEUTROPHILS % (AUTO) 38.2 % (45.0-75.0); PLATELET COUNT 150 K/UL (150-450); RED BLOOD COUNT 3.79 M/UL (4.20-5.40); RED CELL DISTRIBUTION WIDTH 13.6 % (11.6-14.8); WHITE BLOOD COUNT 6.1 K/UL (4.8-10.8)
[2019-12-18 09:11] LABS: ALANINE AMINOTRANSFERASE 16 U/L (12-78); ALBUMIN 3.6 G/DL (3.4-5.0); ALBUMIN/GLOBULIN RATIO 0.9 (1.0-2.7); ALKALINE PHOSPHATASE 84 U/L (46-116); ANION GAP 8 mmol/L (5-15); ASPARTATE AMINO TRANSFERASE 13 U/L (15-37); BILIRUBIN,TOTAL 0.3 MG/DL (0.2-1.0); BLOOD UREA NITROGEN 4 mg/dL (7-18); CALCIUM 8.6 MG/DL (8.5-10.1); CARBON DIOXIDE 29 MMOL/L (21-32); CHLORIDE 108 MMOL/L (98-107); CREATININE 0.9 MG/DL (0.55-1.30); POTASSIUM 4.1 MMOL/L (3.5-5.1); SODIUM 145 MMOL/L (136-145)
[2019-12-18] MEDS ORDERED: Sorbitol Solution UD 30ml ORAL SCH ×2 (10:45→20:00)
[2019-12-18] MEDS: Potassium Chloride 10 MEQ in D5 1/2NS 1,000 ML IV SCH (11:47)
[2019-12-18] MEDS: HYDROmorphone 1mg/ml Carpuject IVP PRN ×2 (11:48→21:25)
[2019-12-18 12:00] VITALS: BP 135/67
--- NOTE | 2019-12-18 14:46 | NUR ---
CASE MANAGEMENT: REVIEW 12/17/2019 SI: LUPUS . COLITIS 98.7 71 18 119/69 99% ROOM AIR WBC 4.4 H/H 9.2/28.7 CL- 110 CA+8.2 IS: IV ROCEPHIN QD IV KCL @75ML/HR TOPROL XL PO QD LOTENSIN PO QD ZENPEP PO TID PLAQUENIL PO BID METHADONE PO Q8HR GABAPENTIN PO TID METFORMIN PO TID ELIQUIS PO BID ASPIRIN PO QD PROVENTIL MDI INH Q6HR : 4E MED SURG UNIT DCP: PATIENT IS FROM HOME CASE MANAGEMENT: REVIEW 12/18/2019 SI: LUPUS . COLITIS 98.7 60 20 145/72 92% ROOM AIR WBC 4.4 H/H 9.2/28.7 CL- 110 CA+8.2 IS: IV ROCEPHIN QD IV KCL @75ML/HR TOPROL XL PO QD LOTENSIN PO QD ZENPEP PO TID PLAQUENIL PO BID METHADONE PO Q8HR GABAPENTIN PO TID METFORMIN PO TID ELIQUIS PO BID ASPIRIN PO QD PROVENTIL MDI INH Q6HR : 4E MED SURG UNIT DCP: PATIENT IS FROM HOME PLAN: START ON CLEAR LIQ DIET RECTAL BLEEDING -PLAN EGD/COLONOSCOPY 12/20/2019 CONTROL VOMITING CONTROL DIARRHEA
[2019-12-18 16:00] VITALS: BP 130/71
--- NOTE | 2019-12-18 19:06 | NUR ---
HAND-OFF: Report given to PRIYANKA Hernandez.
--- NOTE | 2019-12-18 19:40 | NUR ---
NURSE NOTES: Patient is awake and alert x4. On room air with no signs of distress or SOB. IV intact and running as ordered. Family at bedside. Bed locked and in lowest position. Call light within reach. Will continue to monitor the patient.
[2019-12-18 20:00] VITALS: BP 113/70
--- NOTE | 2019-12-18 20:01 | General Progress Note ---
Assessment/Plan Status: stable, progressing Assessment/Plan: GI CONSULT Dictated Pattern of rectal bleeding suggestive of hemorrhoidal bleed Will consider colonoscopy later this week Alternatively, can do as outpatient if discharged. Thank you Beverly Garcia MD Subjective Allergies: Coded Allergies: ADHESIVE TAPE (Verified Allergy, Unknown, 12/13/19) DROPERIDOL (Verified Allergy, Unknown, 12/13/19) IBUPROFEN (Verified Allergy, Unknown, 12/13/19) LATEX (Verified Allergy, Unknown, 12/13/19) MORPHINE (Verified Allergy, Unknown, 12/13/19) VANCOMYCIN (Verified Allergy, Unknown, 12/13/19) Uncoded Allergies: CONTRAST (Allergy, Unknown, 12/13/19) ERYTHROMYCIN (Allergy, Unknown, 12/13/19) Objective Last 24 Hour Vital Signs Date Time Temp Pulse Resp B/P (MAP) Pulse Ox O2 Delivery O2 Flow Rate FiO2 12/18/19 16:00 98.6 77 18 130/71 (90) 97 12/18/19 13:02 68 20 97 Room Air 12/18/19 13:02 69 20 95 Room Air 12/18/19 12:18 98.7 12/18/19 12:00 98.5 79 20 135/67 (89) 97 12/18/19 09:00 Room Air 12/18/19 08:41 72 20 98 Room Air 12/18/19 08:40 73 20 96 Room Air 12/18/19 08:12 60 145/72 12/18/19 08:11 145/72 12/18/19 08:00 98.7 60 20 145/72 (96) 92 12/18/19 04:00 98.7 62 20 120/70 (87) 97 12/18/19 01:04 72 16 97 Room Air 12/18/19 01:03 71 16 97 Room Air 12/18/19 00:00 98.1 78 20 126/66 (86) 97 12/17/19 21:33 74 16 98 Room Air 21 12/17/19 21:32 73 16 98 Room Air 21 12/17/19 21:00 Room Air 12/17/19 20:00 97.8 71 20 137/54 (81) 97 Intake and Output 12/17/19 12/18/19 19:00 07:00 Intake Total 860 ml 1575 ml Balance 860 ml 1575 ml Intake Oral 900 ml IV Total 860 ml 675 ml # Voids 9 # Bowel Movements 4 Laboratory Tests 12/18/19 08:30: White Blood Count 6.1, Red Blood Count 3.79L, Hemoglobin 10.1L, Hematocrit 31.9L , Mean Corpuscular Volume 84, Mean Corpuscular Hemoglobin 26.7L, Mean Corpuscular Hemoglobin Concent 31.8L, Red Cell Distribution Width 13.6, Platelet Count 150, Mean Platelet Volume 7.7, Neutrophils (%) (Auto) 38.2L, Lymphocytes (%) (Auto) 49.1H, Monocytes (%) (Auto) 7.7, Eosinophils (%) (Auto) 3.1H, Basophils (%) (Auto) 2.0, Sodium Level 145, Potassium Level 4.1, Chloride Level 108H, Carbon Dioxide Level 29, Anion Gap 8, Blood Urea Nitrogen 4L, Creatinine 0.9, Estimat Glomerular Filtration Rate > 60, Glucose Level 100, Calcium Level 8.6, Total Bilirubin 0.3, Aspartate Amino Transf (AST/SGOT) 13L, Alanine Aminotransferase (ALT/SGPT) 16, Alkaline Phosphatase 84, Total Protein 7.4, Albumin 3.6, Globulin 3.8, Albumin/Globulin Ratio 0.9L Height (Feet): 4 Height (Inches): 10.00 Weight (Pounds): 153 Beverly Garcia MD Dec 18, 2019 20:01
--- NOTE | 2019-12-18 21:15 | Consultation ---
DATE OF CONSULTATION: 12/18/2019 CHIEF COMPLAINT: I was asked to see this patient by Dr. Charles Turcios for evaluation of hematochezia. HISTORY OF PRESENT ILLNESS: The patient is a 59-year-old woman with multiple medical problems as outlined below, who is here from out of town. She complains of a 3-day history of hematochezia. She describes it as red blood mixed with brown stool. The patient's bowel movements were generally soft and daily. She has had a colonoscopy but before 5 years ago. She cannot recall the results. She denies abdominal pain or vomiting. Her belly is usually somewhat distended. PAST MEDICAL HISTORY: History of lupus, vasculitis, pancreatitis, diabetes, past history of TPN but currently is off of TPN, history of deep vein thrombosis. PAST SURGICAL HISTORY: Status post cholecystectomy. SOCIAL HISTORY: The patient does not smoke or drink alcohol. She is single. FAMILY HISTORY: Noncontributory and negative. REVIEW OF SYSTEMS: Otherwise negative. PHYSICAL EXAMINATION: GENERAL: The patient is well-developed and well-nourished woman. HEENT: Normocephalic and atraumatic. Sclerae anicteric. Oropharynx clear. NECK: Supple. CHEST: Clear to auscultation. CARDIOVASCULAR: Revealed regular rate. ABDOMEN: Distended, soft, nontender. EXTREMITIES: Revealed no edema. LABORATORY DATA: Noted. ASSESSMENT: This patient presents with pattern of hematochezia which is suggestive of the hemorrhoidal bleeding exacerbated by Eliquis that has been held. The patient can be considered for colonoscopy to evaluate risk for recurrent bleeding should her Eliquis be continued. In the meantime, laxatives can be given and the patient's bowel habits can be monitored. If the patient is deemed stable on discharge, then a colonoscopy can also be done as an outpatient. RECOMMENDATIONS: 1. Follow laboratory parameters and exam. 2. Gastrointestinal tract preparation. 3. Possible colonoscopy later this week or as an outpatient. Thank you for asking me to participate in the care of this patient. Beverly Garcia M.D. DR: Katelynn JOB#: [id number] CC: ROB
[2019-12-19] VITALS: BP 113/80
[2019-12-19] MEDS: Albuterol 90mcg Inhaler 8gm INH SCH ×4 (01:18→19:50)
[2019-12-19 04:00] VITALS: BP 120/80
[2019-12-19] MEDS: Potassium Chloride 10 MEQ in D5 1/2NS 1,000 ML IV SCH ×2 (06:11→14:12)
[2019-12-19] MEDS: HYDROmorphone 1mg/ml Carpuject IVP PRN ×3 (06:12→22:47)
[2019-12-19] MEDS: NovoLOG Insulin Flexpen SUBQ SCH ×4 (06:21→21:20)
[2019-12-19 06:26] LABS: BASOPHILS % (AUTO) 1.7 % (0.0-2.0); EOSINOPHILS % (AUTO) 2.7 % (0.0-3.0); HEMATOCRIT 31.3 % (37.0-47.0); HEMOGLOBIN 9.9 G/DL (12.0-16.0); LYMPHOCYTES % (AUTO) 47.7 % (20.0-45.0); MEAN CORPUSCULAR VOLUME 84 FL (80-99); MONOCYTES % (AUTO) 8.1 % (1.0-10.0); NEUTROPHILS % (AUTO) 39.8 % (45.0-75.0); PLATELET COUNT 163 K/UL (150-450); RED BLOOD COUNT 3.71 M/UL (4.20-5.40); RED CELL DISTRIBUTION WIDTH 13.6 % (11.6-14.8); WHITE BLOOD COUNT 5.9 K/UL (4.8-10.8)
--- NOTE | 2019-12-19 07:34 | NUR ---
HAND-OFF: Report given to PRIYANKA Willett.
--- NOTE | 2019-12-19 07:38 | General Progress Note ---
Assessment/Plan Problem List: (1) Generalized weakness ICD Codes: R53.1 - Weakness SNOMED: 24317624 (2) Colitis ICD Codes: K52.9 - Noninfective gastroenteritis and colitis, unspecified SNOMED: 21458266 (3) Lupus ICD Codes: M32.9 - Systemic lupus erythematosus, unspecified SNOMED: 116779701 Status: stable, progressing Assessment/Plan: ivf monitor cbc off eliquis gi eval appreciated endoscopy tomorrow pain rx antiemetics monitor labs consider steroids Subjective ROS Limited/Unobtainable: No Constitutional: Reports: malaise, weakness HEENT: Reports: no symptoms Cardiovascular: Reports: no symptoms Respiratory: Reports: no symptoms Gastrointestinal/Abdominal: Reports: abdominal pain, blood in stool Genitourinary: Reports: no symptoms Neurologic/Psychiatric: Reports: no symptoms Endocrine: Reports: no symptoms Hematologic/Lymphatic: Reports: anemia Allergies: Coded Allergies: ADHESIVE TAPE (Verified Allergy, Unknown, 12/13/19) DROPERIDOL (Verified Allergy, Unknown, 12/13/19) IBUPROFEN (Verified Allergy, Unknown, 12/13/19) LATEX (Verified Allergy, Unknown, 12/13/19) MORPHINE (Verified Allergy, Unknown, 12/13/19) VANCOMYCIN (Verified Allergy, Unknown, 12/13/19) Uncoded Allergies: CONTRAST (Allergy, Unknown, 12/13/19) ERYTHROMYCIN (Allergy, Unknown, 12/13/19) All Systems: reviewed and negative except above Subjective diarrhea. bloody stool better. no fever or chills. +abd pain. getting bowel prep. Objective Last 24 Hour Vital Signs Date Time Temp Pulse Resp B/P (MAP) Pulse Ox O2 Delivery O2 Flow Rate FiO2 12/19/19 04:00 98.7 93 18 120/80 (93) 96 12/19/19 01:21 83 20 98 Room Air 21 12/19/19 01:20 80 20 95 Room Air 21 12/19/19 01:10 80 18 94 Room Air 12/19/19 00:00 98.6 90 18 113/80 (91) 95 12/18/19 20:10 Room Air 12/18/19 20:00 82 20 96 Room Air 21 12/18/19 20:00 99.3 84 18 113/70 (84) 95 12/18/19 20:00 84 20 97 Room Air 21 12/18/19 16:00 98.6 77 18 130/71 (90) 97 12/18/19 13:02 68 20 97 Room Air 21 12/18/19 13:02 69 20 95 Room Air 21 12/18/19 12:18 98.7 12/18/19 12:00 98.5 79 20 135/67 (89) 97 12/18/19 09:00 Room Air 12/18/19 08:41 72 20 98 Room Air 12/18/19 08:40 73 20 96 Room Air 21 12/18/19 08:12 60 145/72 12/18/19 08:11 145/72 12/18/19 08:00 98.7 60 20 145/72 (96) 92 Intake and Output 12/18/19 12/19/19 19:00 07:00 Intake Total 1635 ml 240 ml Balance 1635 ml 240 ml Intake Oral 700 ml 240 ml IV Total 935 ml # Voids 12 4 # Bowel Movements 8 5 Laboratory Tests 12/18/19 08:30: White Blood Count 6.1, Red Blood Count 3.79L, Hemoglobin 10.1L, Hematocrit 31.9L , Mean Corpuscular Volume 84, Mean Corpuscular Hemoglobin 26.7L, Mean Corpuscular Hemoglobin Concent 31.8L, Red Cell Distribution Width 13.6, Platelet Count 150, Mean Platelet Volume 7.7, Neutrophils (%) (Auto) 38.2L, Lymphocytes (%) (Auto) 49.1H, Monocytes (%) (Auto) 7.7, Eosinophils (%) (Auto) 3.1H, Basophils (%) (Auto) 2.0, Sodium Level 145, Potassium Level 4.1, Chloride Level 108H, Carbon Dioxide Level 29, Anion Gap 8, Blood Urea Nitrogen 4L, Creatinine 0.9, Estimat Glomerular Filtration Rate > 60, Glucose Level 100, Calcium Level 8.6, Total Bilirubin 0.3, Aspartate Amino Transf (AST/SGOT) 13L, Alanine Aminotransferase (ALT/SGPT) 16, Alkaline Phosphatase 84, Total Protein 7.4, Albumin 3.6, Globulin 3.8, Albumin/Globulin Ratio 0.9L 12/19/19 06:15: White Blood Count 5.9, Red Blood Count 3.71L, Hemoglobin 9.9L, Hematocrit 31.3L , Mean Corpuscular Volume 84, Mean Corpuscular Hemoglobin 26.8L, Mean Corpuscular Hemoglobin Concent 31.8L, Red Cell Distribution Width 13.6, Platelet Count 163, Mean Platelet Volume 7.5, Neutrophils (%) (Auto) 39.8L, Lymphocytes (%) (Auto) 47.7H, Monocytes (%) (Auto) 8.1, Eosinophils (%) (Auto) 2.7, Basophils (%) (Auto) 1.7 Height (Feet): 4 Height (Inches): 10.00 Weight (Pounds): 153 Objective General Appearance: WD/WN, alert Neck: supple Cardiovascular: normal rate, regular rhythm Respiratory/Chest: chest wall non-tender, lungs clear, normal breath sounds, no respiratory distress, no accessory muscle use Abdomen: normal bowel sounds, non tender, soft, no organomegaly, no mass Edema: no edema noted Arm (L), no edema noted Arm (R), no edema noted Leg (L), no edema noted Leg (R), no edema noted Pedal (L), no edema noted Pedal (R), no edema noted Generalized 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
--- NOTE | 2019-12-19 07:40 | NUR ---
NURSE NOTES: received report from PRIYANKA Chirinos. patient in bed. alert. oriented. verbally responsive. no respiratory distress noted. no pain at this time. IV on LFA running d51/2ns @75/hr ambulatory. bed in the lowest position and locked. call light within reach. will continue to provide plan of care.
[2019-12-19 08:00] VITALS: BP 115/72
[2019-12-19] MEDS: Benazepril 10mg tab ORAL SCH ×2 (09:00→09:21)
[2019-12-19] MEDS: Metoprolol Succinate XL 25mg tab ORAL SCH (09:00)
[2019-12-19] MEDS: cefTRIAXone 1 GM in NS 55 ML IVPB SCH (09:15)
[2019-12-19] MEDS: metFORMIN 500mg tab ORAL SCH ×3 (09:20→18:00)
[2019-12-19] MEDS: Pancrelipase Dr Cap ORAL SCH ×3 (09:20→18:00)
[2019-12-19] MEDS: Aspirin EC 81mg tab ORAL SCH (09:21)
[2019-12-19 12:00] VITALS: BP 113/69
[2019-12-19] MEDS ORDERED: Nulytely 4L ORAL SCH (12:00)
--- NOTE | 2019-12-19 12:39 | NUR ---
NURSE NOTES: patient refused noon medications. patient is on clear liquid diet now and she said that medications make stomach upset. BS 100 at 1130. pain controlled with medications.
--- NOTE | 2019-12-19 13:29 | NUR ---
CASE MANAGEMENT: REVIEW 12/19/2019 SI: LUPUS . COLITIS 98.0 78 19 113/69 98% ROOM AIR H/H 9.9/31.3 BUN 4 IS: IV ROCEPHIN QD IV KCL @75ML/HR TOPROL XL PO QD ZENPEP PO TID PLAQUENIL PO BID METHADONE PO Q8HR GABAPENTIN PO TID METFORMIN PO TID ELIQUIS PO BID ASPIRIN PO QD PROVENTIL MDI INH Q6HR : 4E MED SURG UNIT DCP: PATIENT IS FROM HOME PLAN: START ON CLEAR LIQ DIET RECTAL BLEEDING -PLAN EGD/COLONOSCOPY 12/20/2019 CONTROL VOMITING CONTROL DIARRHEA
[2019-12-19] MEDS: Vitamin A&D Oint Tube TOPIC SCH ×2 (14:13→18:00)
--- NOTE | 2019-12-19 14:18 | NUR ---
*-* INSURANCE *-* ALL CLINICALS AND REVIEWS HAVE BEEN FAXED TO: ELLIOT HARRIS:EDA REF# [id number] P: [phone] OPT. 2 EXT. [id number] F: [phone]
[2019-12-19 16:00] VITALS: BP 115/73
--- NOTE | 2019-12-19 18:19 | NUR ---
NURSE NOTES: patient refused @1800 medications d/t meds irritate her stomach with clear liquid diet. explained risks and benefits.
--- NOTE | 2019-12-19 19:30 | NUR ---
Nurses notes Report received by Brennon. pt awake alert oriented x4, pt able to make needs known. no acute respiratory distress noted. Pt aware of NPO after midnight for a procedure in the am. IV to LFA infusing KCL 10meq D51/2NS @ 75ml/hr patent. Pt able to ambulate with steady gait to and from restroom call light in reach bed in lowest position will continue to monitor condition and provide care and treatment as ordered.
--- NOTE | 2019-12-19 19:45 | NUR ---
HAND-OFF: Report given to PRIYANKA Bolivar.
[2019-12-19 20:00] VITALS: BP 137/80
--- NOTE | 2019-12-19 21:36 | General Progress Note ---
Assessment/Plan Status: stable, progressing Assessment/Plan: Assessment - hematochezia - anemia - h/o SLE - h/o vasculitis - h/o DVT - off anticoagulation Recommendations - clear liquids - GI prep - monitor labs - EGD/Colon in am Subjective Allergies: Coded Allergies: ADHESIVE TAPE (Verified Allergy, Unknown, 12/13/19) DROPERIDOL (Verified Allergy, Unknown, 12/13/19) IBUPROFEN (Verified Allergy, Unknown, 12/13/19) LATEX (Verified Allergy, Unknown, 12/13/19) MORPHINE (Verified Allergy, Unknown, 12/13/19) VANCOMYCIN (Verified Allergy, Unknown, 12/13/19) Uncoded Allergies: CONTRAST (Allergy, Unknown, 12/13/19) ERYTHROMYCIN (Allergy, Unknown, 12/13/19) Subjective above noted no new complaints Objective Last 24 Hour Vital Signs Date Time Temp Pulse Resp B/P (MAP) Pulse Ox O2 Delivery O2 Flow Rate FiO2 12/19/19 19:53 75 18 96 Room Air 21 12/19/19 19:50 75 18 96 Room Air 21 12/19/19 16:00 98.2 75 18 115/73 (87) 100 12/19/19 13:24 75 20 98 Room Air 21 12/19/19 13:24 73 20 97 Room Air 21 12/19/19 12:00 98.0 78 19 113/69 (84) 98 12/19/19 09:00 115/72 12/19/19 09:00 Room Air 12/19/19 08:00 98.0 76 18 115/72 (86) 100 12/19/19 07:28 79 20 99 Room Air 12/19/19 07:25 78 20 99 Room Air 21 12/19/19 04:00 98.7 93 18 120/80 (93) 96 12/19/19 01:21 83 20 98 Room Air 12/19/19 01:20 80 20 95 Room Air 21 12/19/19 01:10 80 18 94 Room Air 12/19/19 00:00 98.6 90 18 113/80 (91) 95 Intake and Output 12/18/19 12/19/19 19:00 07:00 Intake Total 1635 ml 240 ml Balance 1635 ml 240 ml Intake Oral 700 ml 240 ml IV Total 935 ml # Voids 12 4 # Bowel Movements 8 5 Laboratory Tests 12/19/19 06:15: White Blood Count 5.9, Red Blood Count 3.71L, Hemoglobin 9.9L, Hematocrit 31.3L , Mean Corpuscular Volume 84, Mean Corpuscular Hemoglobin 26.8L, Mean Corpuscular Hemoglobin Concent 31.8L, Red Cell Distribution Width 13.6, Platelet Count 163, Mean Platelet Volume 7.5, Neutrophils (%) (Auto) 39.8L, Lymphocytes (%) (Auto) 47.7H, Monocytes (%) (Auto) 8.1, Eosinophils (%) (Auto) 2.7, Basophils (%) (Auto) 1.7 Height (Feet): 4 Height (Inches): 10.00 Weight (Pounds): 153 Beverly Garcia MD Dec 19, 2019 21:36
[2019-12-20] VITALS (10 sets, daily range): BP systolic 115–149; BP diastolic 56–84
[2019-12-20] MEDS: Albuterol 90mcg Inhaler 8gm INH SCH ×4 (01:11→21:53)
[2019-12-20] MEDS: Potassium Chloride 10 MEQ in D5 1/2NS 1,000 ML IV SCH ×2 (02:56→16:28)
--- NOTE | 2019-12-20 04:13 | NUR ---
Nurses notes flushed IV to RAC and attempted to restart potassium infusing pt refused
[2019-12-20] MEDS ORDERED: Lidocaine 1% MPF 10mg/ml 5ml ONE (06:30)
[2019-12-20] MEDS ORDERED: D5NS 1000ml IV ONE (06:30)
[2019-12-20] MEDS: NovoLOG Insulin Flexpen SUBQ SCH ×4 (06:30→21:00)
[2019-12-20] MEDS ORDERED: Propofol 200mg/20ml IV ONE (06:30)
--- NOTE | 2019-12-20 06:37 | Anethesia Preoperative Eval ---
Anesthesia Pre-op PMH/ROS General Date of Evaluation: Dec 20, 2019 Time of Evaluation: 06:36 Anesthesiologist: enrrique ASA Score: ASA 3 Mallampati Score Class I : Soft palate, uvula, fauces, pillars visible Class II: Soft palate, uvula, fauces visible Class III: Soft palate, base of uvula visible Class IV: Only hard plate visible Mallampati Classification: Class II Surgeon: orquidea Diagnosis: colitis, anemia Surgical Procedure: egd/colonoscopy Anesthesia History: none Social History: smoking - nonsmoker Family History: no anesthesia problems Allergies: Coded Allergies: ADHESIVE TAPE (Verified Allergy, Unknown, 12/13/19) DROPERIDOL (Verified Allergy, Unknown, 12/13/19) IBUPROFEN (Verified Allergy, Unknown, 12/13/19) LATEX (Verified Allergy, Unknown, 12/13/19) MORPHINE (Verified Allergy, Unknown, 12/13/19) VANCOMYCIN (Verified Allergy, Unknown, 12/13/19) Uncoded Allergies: CONTRAST (Allergy, Unknown, 12/13/19) ERYTHROMYCIN (Allergy, Unknown, 12/13/19) Medications: see eMAR Patient NPO?: Yes Past Medical History Cardiovascular: Reports: HTN Gastrointestinal/Genitourinary: Reports: other - colitis, pancreatitis Neurologic/Psychiatric: Reports: other - weakness Endocrine: Reports: DM Hematology/Immune: Reports: anemia, other - sle Anesthesia Pre-op Phys. Exam Physician Exam Last Vital Signs Date Time Temp Pulse Resp B/P (MAP) Pulse Ox O2 Delivery O2 Flow Rate FiO2 12/20/19 01:13 69 18 96 Room Air 21 12/20/19 00:00 97.9 139/66 (90) Constitutional: NAD Neurologic: CN 2-12 intact Cardiovascular: RRR Respiratory: CTA Gastrointestinal: S/NT/ND Airway Exam Mallampati Score: Class II MO: limited Neck: Flexible TMD: 2fb ROM: limited Teeth: missing Dentures: upper Anesthesia Pre-op A/P Risk Assessment & Plan Assessment: asa3 Plan: mac Status Change Before Surgery: No Pre-Antibiotics Drug: Dominga Stein MD Dec 20, 2019 06:37
[2019-12-20] MEDS ORDERED: fentaNYL 100 mcg/2 mL IV PRN (06:45)
[2019-12-20] MEDS ORDERED: DiphenhydrAMINE 50mg/ml Inj IVP PRN (06:45)
[2019-12-20] MEDS ORDERED: Midazolam 2mg/2ml Inj IVP PRN (06:45)
[2019-12-20] MEDS ORDERED: Atropine Inj 1mg/10ml Syr IV PRN (06:45)
[2019-12-20 06:46] LABS: BASOPHILS % (AUTO) 0.8 % (0.0-2.0); EOSINOPHILS % (AUTO) 1.4 % (0.0-3.0); HEMATOCRIT 32.8 % (37.0-47.0); HEMOGLOBIN 10.6 G/DL (12.0-16.0); LYMPHOCYTES % (AUTO) 21.4 % (20.0-45.0); MEAN CORPUSCULAR VOLUME 83 FL (80-99); MONOCYTES % (AUTO) 8.6 % (1.0-10.0); NEUTROPHILS % (AUTO) 67.8 % (45.0-75.0); PLATELET COUNT 178 K/UL (150-450); RED BLOOD COUNT 3.95 M/UL (4.20-5.40); RED CELL DISTRIBUTION WIDTH 13.3 % (11.6-14.8)
[2019-12-20 06:56] LABS: ALANINE AMINOTRANSFERASE 16 U/L (12-78); ALBUMIN 3.8 G/DL (3.4-5.0); ALBUMIN/GLOBULIN RATIO 0.9 (1.0-2.7); ALKALINE PHOSPHATASE 88 U/L (46-116); ANION GAP 7 mmol/L (5-15); ASPARTATE AMINO TRANSFERASE 15 U/L (15-37); BILIRUBIN,TOTAL 0.7 MG/DL (0.2-1.0); BLOOD UREA NITROGEN 3 mg/dL (7-18); CALCIUM 8.9 MG/DL (8.5-10.1); CARBON DIOXIDE 29 MMOL/L (21-32); CHLORIDE 108 MMOL/L (98-107); CREATININE 0.9 MG/DL (0.55-1.30); POTASSIUM 3.8 MMOL/L (3.5-5.1); SODIUM 144 MMOL/L (136-145)
[2019-12-20] MEDS ORDERED: NS 500ML IVPB ONE (07:00)
[2019-12-20] MEDS ORDERED: D5NS 1,000 ML IV SCH (07:10)
--- NOTE | 2019-12-20 07:10 | General Progress Note ---
Assessment/Plan Status: stable, progressing Assessment/Plan: Assessment - hematochezia - anemia - h/o SLE - h/o vasculitis - h/o DVT - off anticoagulation Recommendations - clear liquids - GI prep - monitor labs - EGD/Colon in am Subjective Allergies: Coded Allergies: ADHESIVE TAPE (Verified Allergy, Unknown, 12/13/19) DROPERIDOL (Verified Allergy, Unknown, 12/13/19) IBUPROFEN (Verified Allergy, Unknown, 12/13/19) LATEX (Verified Allergy, Unknown, 12/13/19) MORPHINE (Verified Allergy, Unknown, 12/13/19) VANCOMYCIN (Verified Allergy, Unknown, 12/13/19) Uncoded Allergies: CONTRAST (Allergy, Unknown, 12/13/19) ERYTHROMYCIN (Allergy, Unknown, 12/13/19) Subjective above noted no new complaints Objective Last 24 Hour Vital Signs Date Time Temp Pulse Resp B/P (MAP) Pulse Ox O2 Delivery O2 Flow Rate FiO2 12/20/19 04:00 99.0 20 129/82 (98) 84 12/20/19 01:13 69 18 96 Room Air 21 12/20/19 01:11 68 18 96 Room Air 21 12/20/19 00:00 97.9 18 139/66 (90) 96 12/19/19 21:00 Room Air 12/19/19 20:00 97.7 18 137/80 (99) 99 12/19/19 19:53 75 18 96 Room Air 21 12/19/19 19:50 75 18 96 Room Air 21 12/19/19 16:00 98.2 75 18 115/73 (87) 100 12/19/19 13:24 75 20 98 Room Air 21 12/19/19 13:24 73 20 97 Room Air 21 12/19/19 12:00 98.0 78 19 113/69 (84) 98 12/19/19 09:00 115/72 12/19/19 09:00 Room Air 12/19/19 08:00 98.0 76 18 115/72 (86) 100 12/19/19 07:28 79 20 99 Room Air 21 12/19/19 07:25 78 20 99 Room Air 21 Intake and Output 12/19/19 12/20/19 19:00 07:00 Intake Total 860 ml 700 ml Balance 860 ml 700 ml Intake Oral 700 ml IV Total 860 ml # Voids 4 # Bowel Movements 2 7 Laboratory Tests 12/20/19 06:34: White Blood Count 7.0, Red Blood Count 3.95L, Hemoglobin 10.6L, Hematocrit 32.8L , Mean Corpuscular Volume 83, Mean Corpuscular Hemoglobin 26.7L, Mean Corpuscular Hemoglobin Concent 32.2, Red Cell Distribution Width 13.3, Platelet Count 178, Mean Platelet Volume 7.5, Neutrophils (%) (Auto) 67.8, Lymphocytes (% ) (Auto) 21.4, Monocytes (%) (Auto) 8.6, Eosinophils (%) (Auto) 1.4, Basophils ( %) (Auto) 0.8, Sodium Level [Pending], Potassium Level [Pending], Chloride Level [Pending], Carbon Dioxide Level [Pending], Blood Urea Nitrogen [Pending], Creatinine [Pending], Estimat Glomerular Filtration Rate [Pending], Glucose Level [Pending], Calcium Level [Pending], Total Bilirubin [Pending], Aspartate Amino Transf (AST/SGOT) [Pending], Alanine Aminotransferase (ALT/SGPT) [Pending] , Alkaline Phosphatase [Pending], Total Protein [Pending], Albumin [Pending], Globulin [Pending] Height (Feet): 4 Height (Inches): 10.00 Weight (Pounds): 153 Beverly Garcia MD Dec 20, 2019 07:10
--- NOTE | 2019-12-20 07:11 | Pre-Procedure Note/Attestation ---
Pre-Procedure Note/Attestation Complete Prior to Procedure Planned Procedure: not applicable Procedure Narrative: egd colon Indications for Procedure Pre-Operative Diagnosis: hematochezia Attestation I attest that I discussed the nature of the procedure; its benefits; risks and complications; and alternatives (and the risks and benefits of such alternatives ), prior to the procedure, with the patient (or the patient's legal patient service representative). I attest that, if there was a reasonable possibility of needing a blood transfusion, the patient (or the patient's legal patient service representative) was given the [facility] standardized written summary, pursuant to the Jovanny Lauri Blood Safety Act ([place] Health and Safety Code # 1645, as amended). I attest that I re-evaluated the patient just prior to the surgery and that there has been no change in the patient's H&P, except as documented below: Beverly Garcia MD Dec 20, 2019 07:11
--- NOTE | 2019-12-20 07:25 | NUR ---
NURSE NOTES: received report from PRIYANKA Whitney. patient left unit for EGD/colonoscopy.
--- NOTE | 2019-12-20 07:39 | Endoscopy Procedure Note ---
Endoscopy Procedure Note General Indication for Procedure: hematochezia Procedures Performed: EGD, colonoscopy Operative Findings/Diagnosis: mild hemorrhoids Specimen: none Pt Tolerated Procedure Well: Yes Estimated Blood Loss: none Anesthesia Anesthesiologist: Roe Chandra Anesthesia: MAC Medications Medication Given: fentanyl, see anesthesia record Inserted Devices Implant(s) used?: No GI Core Measures 50 yrs or older w/o bx or poly: Not Applicable 10yrs. F/U recommended: Not Applicable Beverly Garcia MD Dec 20, 2019 07:39
--- NOTE | 2019-12-20 07:40 | Brief Operative Note ---
Immediate Post Operative Note Operative Note Chief Complaint: hematochezia Pre-op Diagnosis: hematochezia Procedure: egd colon Post-op Diagnosis: mild rhoid Surgeon: orquidea Anesthesiologist: betsy macias Anesthesia: MAC, moderate sedation Specimen: none Complications: none Condition: stable Fluids: per anesthesia Estimated Blood Loss: none Drains: none Implant(s) used?: No Beverly Garcia MD Dec 20, 2019 07:40
--- NOTE | 2019-12-20 07:56 | General Progress Note ---
Assessment/Plan Problem List: (1) Generalized weakness ICD Codes: R53.1 - Weakness SNOMED: 20565632 (2) Colitis ICD Codes: K52.9 - Noninfective gastroenteritis and colitis, unspecified SNOMED: 82255237 (3) Lupus ICD Codes: M32.9 - Systemic lupus erythematosus, unspecified SNOMED: 324901076 Status: stable, progressing Assessment/Plan: ivf monitor cbc off eliquis gi eval appreciated endoscopy pain rx antiemetics monitor labs Subjective ROS Limited/Unobtainable: No Constitutional: Reports: malaise, weakness HEENT: Reports: no symptoms Cardiovascular: Reports: no symptoms Respiratory: Reports: cough Gastrointestinal/Abdominal: Reports: abdominal pain Genitourinary: Reports: no symptoms Neurologic/Psychiatric: Reports: no symptoms Endocrine: Reports: no symptoms Hematologic/Lymphatic: Reports: anemia Allergies: Coded Allergies: ADHESIVE TAPE (Verified Allergy, Unknown, 12/13/19) DROPERIDOL (Verified Allergy, Unknown, 12/13/19) IBUPROFEN (Verified Allergy, Unknown, 12/13/19) LATEX (Verified Allergy, Unknown, 12/13/19) MORPHINE (Verified Allergy, Unknown, 12/13/19) VANCOMYCIN (Verified Allergy, Unknown, 12/13/19) Uncoded Allergies: CONTRAST (Allergy, Unknown, 12/13/19) ERYTHROMYCIN (Allergy, Unknown, 12/13/19) All Systems: reviewed and negative except above Subjective diarrhea. bloody stool better. no fever or chills. +abd pain. getting bowel prep. going for endoscopy this am Objective Last 24 Hour Vital Signs Date Time Temp Pulse Resp B/P (MAP) Pulse Ox O2 Delivery O2 Flow Rate FiO2 12/20/19 04:00 99.0 20 129/82 (98) 84 12/20/19 01:13 69 18 96 Room Air 21 12/20/19 01:11 68 18 96 Room Air 21 12/20/19 00:00 97.9 18 139/66 (90) 96 12/19/19 21:00 Room Air 12/19/19 20:00 97.7 18 137/80 (99) 99 12/19/19 19:53 75 18 96 Room Air 21 12/19/19 19:50 75 18 96 Room Air 21 12/19/19 16:00 98.2 75 18 115/73 (87) 100 12/19/19 13:24 75 20 98 Room Air 21 12/19/19 13:24 73 20 97 Room Air 21 12/19/19 12:00 98.0 78 19 113/69 (84) 98 12/19/19 09:00 115/72 12/19/19 09:00 Room Air 12/19/19 08:00 98.0 76 18 115/72 (86) 100 Intake and Output 12/19/19 12/20/19 19:00 07:00 Intake Total 860 ml 700 ml Balance 860 ml 700 ml Intake Oral 700 ml IV Total 860 ml # Voids 4 # Bowel Movements 2 7 Laboratory Tests 12/20/19 06:34: White Blood Count 7.0, Red Blood Count 3.95L, Hemoglobin 10.6L, Hematocrit 32.8L , Mean Corpuscular Volume 83, Mean Corpuscular Hemoglobin 26.7L, Mean Corpuscular Hemoglobin Concent 32.2, Red Cell Distribution Width 13.3, Platelet Count 178, Mean Platelet Volume 7.5, Neutrophils (%) (Auto) 67.8, Lymphocytes (% ) (Auto) 21.4, Monocytes (%) (Auto) 8.6, Eosinophils (%) (Auto) 1.4, Basophils ( %) (Auto) 0.8, Sodium Level 144, Potassium Level 3.8, Chloride Level 108H, Carbon Dioxide Level 29, Anion Gap 7, Blood Urea Nitrogen 3L, Creatinine 0.9, Estimat Glomerular Filtration Rate > 60, Glucose Level 80, Calcium Level 8.9, Total Bilirubin 0.7, Aspartate Amino Transf (AST/SGOT) 15, Alanine Aminotransferase (ALT/SGPT) 16, Alkaline Phosphatase 88, Total Protein 7.9, Albumin 3.8, Globulin 4.1, Albumin/Globulin Ratio 0.9L Height (Feet): 4 Height (Inches): 10.00 Weight (Pounds): 153 Objective General Appearance: WD/WN, alert Neck: supple Cardiovascular: normal rate, regular rhythm Respiratory/Chest: chest wall non-tender, lungs clear, normal breath sounds, no respiratory distress, no accessory muscle use Abdomen: normal bowel sounds, non tender, soft, no organomegaly, no mass Edema: no edema noted Arm (L), no edema noted Arm (R), no edema noted Leg (L), no edema noted Leg (R), no edema noted Pedal (L), no edema noted Pedal (R), no edema noted Generalized 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
--- NOTE | 2019-12-20 07:59 | Immediate Post-Op Evaluation ---
Immediate Post-Op Evalulation Immediate Post-Op Evalulation Procedure: egd/colonoscopy Date of Evaluation: Dec 20, 2019 Time of Evaluation: 07:56 IV Fluids: 200ml Blood Products: none Estimated Blood Loss: negligible Blood Pressure Systolic: 115 Blood Pressure Diastolic: 60 Pulse Rate: 81 Respiratory Rate: 18 O2 Sat by Pulse Oximetry: 100 Temperature (Fahrenheit): 98.9 Pain Score (1-10): 0 Nausea: No Vomiting: No Complications none Patient Status: awake, reacts, patent Hydration Status: adequate Drug: Dominga Stein MD Dec 20, 2019 07:59
--- NOTE | 2019-12-20 08:00 | 48 Hour Post Anesthesia Eval ---
Post Anesthesia Evaluation Procedure: egd/colonoscopy Date of Evaluation: Dec 20, 2019 Time of Evaluation: 07:59 Blood Pressure Systolic: 131 0: 62 Pulse Rate: 81 Respiratory Rate: 18 Temperature (Fahrenheit): 98.9 O2 Sat by Pulse Oximetry: 100 Airway: patent Nausea: No Vomiting: No Pain Intensity: 0 Hydration Status: adequate Cardiopulmonary Status: stable Mental Status/LOC: patient returned to baseline Post-Anesthesia Complications: none Follow-up care needed: N/A Dominga Arana MD Dec 20, 2019 08:00
--- NOTE | 2019-12-20 08:15 | NUR ---
NURSE NOTES: patient came back to unit with fair condition. verbally responsive. drowsy. alert. oriented. no respiratory distress noted. BS124 after procedures. EGD normal. colonoscopy with hemorrhoid. received report from PRIYANKA Nuñez,OR. bed in the lowest position. call light within reach. start cardiac diet.
[2019-12-20] MEDS: Metoprolol Succinate XL 25mg tab ORAL SCH (09:00)
[2019-12-20] MEDS: Aspirin EC 81mg tab ORAL SCH (09:00)
[2019-12-20] MEDS: Pancrelipase Dr Cap ORAL SCH ×3 (09:00→18:52)
[2019-12-20] MEDS: metFORMIN 500mg tab ORAL SCH ×3 (09:00→18:52)
[2019-12-20] MEDS: Benazepril 10mg tab ORAL SCH (09:00)
[2019-12-20] MEDS: Vitamin A&D Oint Tube TOPIC SCH ×3 (09:00→18:52)
[2019-12-20] MEDS: cefTRIAXone 1 GM in NS 55 ML IVPB SCH (11:09)
[2019-12-20] MEDS: HYDROmorphone 1mg/ml Carpuject IVP PRN (11:18)
--- NOTE | 2019-12-20 14:00 | Operative Note - Dictated ---
DATE OF OPERATION: 12/20/2019 GASTROENTEROLOGY PROCEDURE REPORT PROCEDURE: Upper gastrointestinal endoscopy as well as colonoscopy. SURGEON: Beverly Garcia M.D. ANESTHESIA: Per Dr. Dominga Bay. PRE-ENDOSCOPIC DIAGNOSIS: Hematochezia. POST-ENDOSCOPIC DIAGNOSIS: Mild internal hemorrhoids. DESCRIPTION OF PROCEDURE: The procedure, its risks, indications, alternatives, and possible complications were explained to the patient and informed consent was obtained. The patient was then sedated and a diagnostic upper endoscope was introduced through oropharynx and advanced to the duodenum without difficulty. The endoscope was then removed and afterwards the rectal exam was done and colonoscope was introduced into the rectum and advanced to cecum. The cecum was identified by the appearance of the ileocecal valve and the appendiceal orifice. The colonoscope was then gradually withdrawn and the mucosa examined carefully. Examination was concluded with the retroflex view of the rectum. Mild internal hemorrhoids were seen. The examinations were otherwise unremarkable. The patient was sent to recovery in good condition. COMPLICATIONS: None. RECOMMENDATIONS: 1. Resume oral diet. 2. Resume anticoagulation. 3. High-fiber diet. Beverly Garcia M.D. DR: IAN JOB#: [id number] CC:
--- NOTE | 2019-12-20 16:00 | General Progress Note ---
Assessment/Plan Status: stable, progressing Assessment/Plan: Assessment - hematochezia - anemia - h/o SLE - h/o vasculitis - h/o DVT - off anticoagulation Recommendations - NPO - monitor labs - EGD/Colon POST PROCEDURE EGD/[place] --> mild hemorrhoids, OK to resume anticoagulation Subjective Allergies: Coded Allergies: ADHESIVE TAPE (Verified Allergy, Unknown, 12/13/19) DROPERIDOL (Verified Allergy, Unknown, 12/13/19) IBUPROFEN (Verified Allergy, Unknown, 12/13/19) LATEX (Verified Allergy, Unknown, 12/13/19) MORPHINE (Verified Allergy, Unknown, 12/13/19) VANCOMYCIN (Verified Allergy, Unknown, 12/13/19) Uncoded Allergies: CONTRAST (Allergy, Unknown, 12/13/19) ERYTHROMYCIN (Allergy, Unknown, 12/13/19) Subjective above noted no new complaints Objective Last 24 Hour Vital Signs Date Time Temp Pulse Resp B/P (MAP) Pulse Ox O2 Delivery O2 Flow Rate FiO2 12/20/19 12:32 76 18 98 Room Air 21 12/20/19 12:30 75 18 97 Room Air 21 12/20/19 12:00 99.1 80 19 149/84 (105) 100 12/20/19 09:00 Room Air 12/20/19 09:00 79 139/64 12/20/19 08:10 98.4 79 17 139/64 100 Nasal Cannula 3 12/20/19 08:04 79 19 139/66 100 Nasal Cannula 3 12/20/19 08:00 81 18 100 12/20/19 07:59 81 18 100 12/20/19 07:54 81 19 131/62 100 Nasal Cannula 3 12/20/19 07:50 Room Air 21 12/20/19 07:50 Room Air 21 12/20/19 07:49 82 14 117/59 100 Nasal Cannula 3 12/20/19 07:44 98.9 81 18 115/60 100 Nasal Cannula 3 12/20/19 04:00 99.0 20 129/82 (98) 84 12/20/19 01:13 69 18 96 Room Air 21 12/20/19 01:11 68 18 96 Room Air 21 12/20/19 00:00 97.9 18 139/66 (90) 96 12/19/19 21:00 Room Air 12/19/19 20:00 97.7 18 137/80 (99) 99 12/19/19 19:53 75 18 96 Room Air 21 12/19/19 19:50 75 18 96 Room Air 21 12/19/19 16:00 98.2 75 18 115/73 (87) 100 Intake and Output 12/19/19 12/20/19 19:00 07:00 Intake Total 860 ml 700 ml Balance 860 ml 700 ml Intake Oral 700 ml IV Total 860 ml # Voids 4 # Bowel Movements 2 7 Laboratory Tests 12/20/19 06:34: White Blood Count 7.0, Red Blood Count 3.95L, Hemoglobin 10.6L, Hematocrit 32.8L , Mean Corpuscular Volume 83, Mean Corpuscular Hemoglobin 26.7L, Mean Corpuscular Hemoglobin Concent 32.2, Red Cell Distribution Width 13.3, Platelet Count 178, Mean Platelet Volume 7.5, Neutrophils (%) (Auto) 67.8, Lymphocytes (% ) (Auto) 21.4, Monocytes (%) (Auto) 8.6, Eosinophils (%) (Auto) 1.4, Basophils ( %) (Auto) 0.8, Sodium Level 144, Potassium Level 3.8, Chloride Level 108H, Carbon Dioxide Level 29, Anion Gap 7, Blood Urea Nitrogen 3L, Creatinine 0.9, Estimat Glomerular Filtration Rate > 60, Glucose Level 80, Calcium Level 8.9, Total Bilirubin 0.7, Aspartate Amino Transf (AST/SGOT) 15, Alanine Aminotransferase (ALT/SGPT) 16, Alkaline Phosphatase 88, Total Protein 7.9, Albumin 3.8, Globulin 4.1, Albumin/Globulin Ratio 0.9L Height (Feet): 4 Height (Inches): 10.00 Weight (Pounds): 153 Beverly Garcia MD Dec 20, 2019 16:00
--- NOTE | 2019-12-20 17:35 | NUR ---
CASE MANAGEMENT: REVIEW 12/20/2019 SI: LUPUS . COLITIS 98.5 75 20 120/56 99% ROOM AIR H/H 10.6/32.8 CL-108 IS: IV ROCEPHIN QD TOPROL XL PO QD ZENPEP PO TID PLAQUENIL PO BID METHADONE PO Q8HR GABAPENTIN PO TID METFORMIN PO TID ELIQUIS PO BID ASPIRIN PO QD PROVENTIL MDI INH Q6HR : 4E MED SURG UNIT DCP: PATIENT IS FROM HOME PLAN: START ON CARDIAC DIET RECTAL BLEEDING -PLAN EGD/COLONOSCOPY 12/20/2019 CONTROL VOMITING CONTROL DIARRHEA
--- NOTE | 2019-12-20 19:33 | NUR ---
HAND-OFF: Report given to PRIYANKA Black.
--- NOTE | 2019-12-20 20:00 | NUR ---
NURSE NOTES: Pt is in bed, awake and alert. No acute distress noted. Vitas stable.Pt is S/p EGD and colonoscopy. No nausea, vomiting or complaints of pain. Pt is ambulatory. Bed locked low in position,side rails up and call light within reach. Pt will be monitored.
[2019-12-21] VITALS: BP 127/69
[2019-12-21] MEDS: Albuterol 90mcg Inhaler 8gm INH SCH ×4 (01:53→20:25)
[2019-12-21 04:00] VITALS: BP 131/70
[2019-12-21] MEDS: NovoLOG Insulin Flexpen SUBQ SCH ×4 (05:57→20:04)
[2019-12-21] MEDS: Potassium Chloride 10 MEQ in D5 1/2NS 1,000 ML IV SCH ×2 (06:40→18:10)
[2019-12-21] MEDS: HYDROmorphone 1mg/ml Carpuject IVP PRN ×2 (06:40→18:05)
--- NOTE | 2019-12-21 07:15 | NUR ---
NURSE NOTES: received report from PRIYANKA Black. patient in bed.alert. oriented. verbally responsive. no respiratory distress noted. no c/o pain at this time. IV on LFA running D5 1/2ns 20meq@75/hr. intact. bed in the lowest position and locked. call light within reach. will continue to provide plan of care.
--- NOTE | 2019-12-21 07:30 | NUR ---
HAND-OFF: Report given to Brennon Mcdonald RN.Pt is in bed, awake and alert. P has a visitor at bedside.
[2019-12-21 08:00] VITALS: BP 132/68
[2019-12-21] MEDS: cefTRIAXone 1 GM in NS 55 ML IVPB SCH (08:25)
[2019-12-21] MEDS: Pancrelipase Dr Cap ORAL SCH ×3 (08:26→18:01)
[2019-12-21] MEDS: Benazepril 10mg tab ORAL SCH (08:26)
[2019-12-21] MEDS: Aspirin EC 81mg tab ORAL SCH (08:26)
[2019-12-21] MEDS: metFORMIN 500mg tab ORAL SCH ×3 (08:26→18:01)
[2019-12-21] MEDS: Metoprolol Succinate XL 25mg tab ORAL SCH (08:27)
[2019-12-21] MEDS: Vitamin A&D Oint Tube TOPIC SCH ×3 (08:33→18:01)
--- NOTE | 2019-12-21 11:04 | General Progress Note ---
Assessment/Plan Problem List: (1) Generalized weakness ICD Codes: R53.1 - Weakness SNOMED: 90767190 (2) Colitis ICD Codes: K52.9 - Noninfective gastroenteritis and colitis, unspecified SNOMED: 21839487 (3) Lupus ICD Codes: M32.9 - Systemic lupus erythematosus, unspecified SNOMED: 166659485 Status: stable, progressing Assessment/Plan: monitor cbc cautious resumption of eliquis gi eval appreciated pain rx antiemetics monitor labs dc planning tomorrow if no bleeding and tolerating po Subjective ROS Limited/Unobtainable: No Constitutional: Reports: malaise, weakness HEENT: Reports: no symptoms Cardiovascular: Reports: no symptoms Respiratory: Reports: no symptoms Gastrointestinal/Abdominal: Reports: abdominal pain, blood in stool Genitourinary: Reports: no symptoms Neurologic/Psychiatric: Reports: pre-existing deficit Endocrine: Reports: no symptoms Hematologic/Lymphatic: Reports: no symptoms Allergies: Coded Allergies: ADHESIVE TAPE (Verified Allergy, Unknown, 12/13/19) DROPERIDOL (Verified Allergy, Unknown, 12/13/19) IBUPROFEN (Verified Allergy, Unknown, 12/13/19) LATEX (Verified Allergy, Unknown, 12/13/19) MORPHINE (Verified Allergy, Unknown, 12/13/19) VANCOMYCIN (Verified Allergy, Unknown, 12/13/19) Uncoded Allergies: CONTRAST (Allergy, Unknown, 12/13/19) ERYTHROMYCIN (Allergy, Unknown, 12/13/19) All Systems: reviewed and negative except above Subjective GI noted. +hemorrhoids no bleeding. Objective Last 24 Hour Vital Signs Date Time Temp Pulse Resp B/P (MAP) Pulse Ox O2 Delivery O2 Flow Rate FiO2 12/21/19 09:00 Room Air 12/21/19 08:27 75 132/68 12/21/19 08:26 132/68 12/21/19 08:00 98.5 75 18 132/68 (89) 96 12/21/19 07:55 75 16 97 Room Air 21 12/21/19 07:55 75 16 97 Room Air 21 12/21/19 04:00 98.4 76 18 131/70 (90) 96 12/21/19 01:54 75 18 99 Room Air 21 12/21/19 01:53 73 20 98 Room Air 21 12/21/19 00:00 98.2 82 20 127/69 (88) 98 12/20/19 21:58 79 18 98 Room Air 21 12/20/19 21:57 70 16 97 Room Air 21 12/20/19 21:00 Room Air 12/20/19 20:00 98.6 73 20 121/61 (81) 96 12/20/19 16:00 98.5 75 20 120/56 (77) 99 12/20/19 12:32 76 18 98 Room Air 21 12/20/19 12:30 75 18 97 Room Air 21 12/20/19 12:00 99.1 80 19 149/84 (105) 100 Intake and Output 12/20/19 12/21/19 19:00 07:00 Intake Total 1360 ml 1520 ml Balance 1360 ml 1520 ml Intake Oral 425 ml 620 ml IV Total 935 ml 900 ml # Voids 3 3 # Bowel Movements 4 Height (Feet): 4 Height (Inches): 10.00 Weight (Pounds): 153 Objective General Appearance: WD/WN, alert Neck: supple Cardiovascular: normal rate, regular rhythm Respiratory/Chest: chest wall non-tender, lungs clear, normal breath sounds, no respiratory distress, no accessory muscle use Abdomen: normal bowel sounds, non tender, soft, no organomegaly, no mass Edema: no edema noted Arm (L), no edema noted Arm (R), no edema noted Leg (L), no edema noted Leg (R), no edema noted Pedal (L), no edema noted Pedal (R), no edema noted 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
[2019-12-21 12:00] VITALS: BP 108/68
[2019-12-21 16:00] VITALS: BP 116/74
[2019-12-21] MEDS: Eliquis 5mg tablet ORAL SCH (18:01)
--- NOTE | 2019-12-21 19:20 | NUR ---
NURSE NOTES: Pt received in bed awake, alert able to make needs known, call light within reach, no c/o pain, IV fluids running, will continue to monitor.
--- NOTE | 2019-12-21 19:25 | NUR ---
HAND-OFF: Report given to PRIYANKA Hutchison.
[2019-12-21 20:00] VITALS: BP 129/77
--- NOTE | 2019-12-21 20:19 | General Progress Note ---
Assessment/Plan Status: stable, progressing Assessment/Plan: Assessment - hematochezia - hemorrhoids - anemia - h/o SLE - h/o vasculitis - h/o DVT Recommendations - po diet - monitor labs - anticoagulation Subjective Allergies: Coded Allergies: ADHESIVE TAPE (Verified Allergy, Unknown, 12/13/19) DROPERIDOL (Verified Allergy, Unknown, 12/13/19) IBUPROFEN (Verified Allergy, Unknown, 12/13/19) LATEX (Verified Allergy, Unknown, 12/13/19) MORPHINE (Verified Allergy, Unknown, 12/13/19) VANCOMYCIN (Verified Allergy, Unknown, 12/13/19) Uncoded Allergies: CONTRAST (Allergy, Unknown, 12/13/19) ERYTHROMYCIN (Allergy, Unknown, 12/13/19) Subjective above noted no new complaints d/w patient re results Objective Last 24 Hour Vital Signs Date Time Temp Pulse Resp B/P (MAP) Pulse Ox O2 Delivery O2 Flow Rate FiO2 12/21/19 16:00 98.0 68 18 116/74 (88) 99 12/21/19 12:07 72 16 97 Room Air 21 12/21/19 12:07 70 16 96 Room Air 12/21/19 12:00 97.5 64 19 108/68 (81) 98 12/21/19 09:00 Room Air 12/21/19 08:27 75 132/68 12/21/19 08:26 132/68 12/21/19 08:00 98.5 75 18 132/68 (89) 96 12/21/19 07:55 75 16 97 Room Air 12/21/19 07:55 75 16 97 Room Air 12/21/19 04:00 98.4 76 18 131/70 (90) 96 12/21/19 01:54 75 18 99 Room Air 12/21/19 01:53 73 20 98 Room Air 21 12/21/19 00:00 98.2 82 20 127/69 (88) 98 12/20/19 21:58 79 18 98 Room Air 21 12/20/19 21:57 70 16 97 Room Air 21 12/20/19 21:00 Room Air Intake and Output 12/20/19 12/21/19 19:00 07:00 Intake Total 1360 ml 1520 ml Balance 1360 ml 1520 ml Intake Oral 425 ml 620 ml IV Total 935 ml 900 ml # Voids 3 3 # Bowel Movements 4 Height (Feet): 4 Height (Inches): 10.00 Weight (Pounds): 153 Beverly Garcia MD Dec 21, 2019 20:19
[2019-12-22] MEDS: Albuterol 90mcg Inhaler 8gm INH SCH ×4 (01:39→20:38)
[2019-12-22 04:00] VITALS: BP 146/71
[2019-12-22] MEDS: HYDROmorphone 1mg/ml Carpuject IVP PRN (04:41)
[2019-12-22] MEDS: NovoLOG Insulin Flexpen SUBQ SCH ×4 (06:30→20:45)
--- NOTE | 2019-12-22 07:20 | NUR ---
nurse notes received patient sitting in the edge of the bed, no sign of distress, denies pain or discomfort at this time, IVF patent and infusing well, will continue to monitor patient condition melida manley
--- NOTE | 2019-12-22 07:27 | NUR ---
HAND-OFF: Report given to PRIYANKA Goodwin.
[2019-12-22 08:00] VITALS: BP 155/89
[2019-12-22] MEDS: Eliquis 5mg tablet ORAL SCH ×2 (08:09→17:12)
[2019-12-22] MEDS: Benazepril 10mg tab ORAL SCH (08:09)
[2019-12-22] MEDS: Aspirin EC 81mg tab ORAL SCH (08:09)
[2019-12-22] MEDS: Metoprolol Succinate XL 25mg tab ORAL SCH (08:13)
[2019-12-22] MEDS: metFORMIN 500mg tab ORAL SCH ×3 (08:13→17:12)
[2019-12-22] MEDS: Potassium Chloride 10 MEQ in D5 1/2NS 1,000 ML IV SCH ×2 (08:13→21:17)
[2019-12-22] MEDS: Pancrelipase Dr Cap ORAL SCH ×3 (08:14→17:12)
[2019-12-22] MEDS: Vitamin A&D Oint Tube TOPIC SCH ×3 (09:00→17:15)
[2019-12-22 12:08] VITALS: BP 114/66
--- NOTE | 2019-12-22 12:33 | General Progress Note ---
Assessment/Plan Problem List: (1) Generalized weakness ICD Codes: R53.1 - Weakness SNOMED: 94588338 (2) Colitis ICD Codes: K52.9 - Noninfective gastroenteritis and colitis, unspecified SNOMED: 15852257 (3) Lupus ICD Codes: M32.9 - Systemic lupus erythematosus, unspecified SNOMED: 431817885 Status: stable, progressing Assessment/Plan: monitor cbc cautious resumption of eliquis gi eval appreciated pain rx antiemetics monitor labs dc today Subjective ROS Limited/Unobtainable: No Constitutional: Reports: malaise, weakness HEENT: Reports: no symptoms Cardiovascular: Reports: no symptoms Respiratory: Reports: no symptoms Gastrointestinal/Abdominal: Reports: abdominal pain Genitourinary: Reports: no symptoms Neurologic/Psychiatric: Reports: pre-existing deficit Endocrine: Reports: no symptoms Hematologic/Lymphatic: Reports: no symptoms Allergies: Coded Allergies: ADHESIVE TAPE (Verified Allergy, Unknown, 12/13/19) DROPERIDOL (Verified Allergy, Unknown, 12/13/19) IBUPROFEN (Verified Allergy, Unknown, 12/13/19) LATEX (Verified Allergy, Unknown, 12/13/19) MORPHINE (Verified Allergy, Unknown, 12/13/19) VANCOMYCIN (Verified Allergy, Unknown, 12/13/19) Uncoded Allergies: CONTRAST (Allergy, Unknown, 12/13/19) ERYTHROMYCIN (Allergy, Unknown, 12/13/19) All Systems: reviewed and negative except above Subjective no complaints.pain controlled. no nausea or vomiting. pain controlled. Objective Last 24 Hour Vital Signs Date Time Temp Pulse Resp B/P (MAP) Pulse Ox O2 Delivery O2 Flow Rate FiO2 12/22/19 12:08 97.3 80 18 114/66 (82) 95 12/22/19 08:30 Room Air 12/22/19 08:13 72 146/71 12/22/19 08:09 146/71 12/22/19 08:00 98.3 80 18 155/89 (111) 99 12/22/19 07:45 72 18 97 Room Air 21 12/22/19 07:43 74 16 97 Room Air 12/22/19 04:00 98.4 72 20 146/71 (96) 99 12/22/19 01:39 77 16 96 Room Air 12/22/19 01:39 75 16 96 Room Air 21 12/21/19 21:00 Room Air 12/21/19 20:26 74 16 96 Room Air 21 12/21/19 20:11 69 16 94 Room Air 21 12/21/19 20:00 98.2 70 18 129/77 (94) 99 12/21/19 16:00 98.0 68 18 116/74 (88) 99 Intake and Output 12/21/19 12/22/19 19:00 07:00 Intake Total 1665 ml 1375 ml Balance 1665 ml 1375 ml Intake Oral 840 ml 700 ml IV Total 825 ml 675 ml # Voids 6 # Bowel Movements 1 Height (Feet): 4 Height (Inches): 10.00 Weight (Pounds): 153 Objective General Appearance: WD/WN, alert Neck: supple Cardiovascular: normal rate, regular rhythm Respiratory/Chest: chest wall non-tender, lungs clear, normal breath sounds, no respiratory distress, no accessory muscle use Abdomen: normal bowel sounds, non tender, soft, no organomegaly, no mass Edema: no edema noted Arm (L), no edema noted Arm (R), no edema noted Leg (L), no edema noted Leg (R), no edema noted Pedal (L), no edema noted Pedal (R), no edema noted 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
--- NOTE | 2019-12-22 13:00 | NUR ---
nurse notes seen by Dr Turcios with order noted discharge to home, patient made aware regarding discharge and stated he will call son for warp picker, melida manley
--- NOTE | 2019-12-22 14:35 | NUR ---
nurse notes I asked patient if she already spoke to the son and stated my son will come and pick me after super ball relief charge nurse made aware , i asked patient if she has zapata and stated I cant go home, i have no zapata melida manley
[2019-12-22 16:00] VITALS: BP 126/61
--- NOTE | 2019-12-22 16:31 | General Progress Note ---
Assessment/Plan Status: stable, progressing Assessment/Plan: Assessment - hematochezia - hemorrhoids - anemia - h/o SLE - h/o vasculitis - h/o DVT Recommendations - po diet - monitor labs - anticoagulation - d/c planning Subjective Allergies: Coded Allergies: ADHESIVE TAPE (Verified Allergy, Unknown, 12/13/19) DROPERIDOL (Verified Allergy, Unknown, 12/13/19) IBUPROFEN (Verified Allergy, Unknown, 12/13/19) LATEX (Verified Allergy, Unknown, 12/13/19) MORPHINE (Verified Allergy, Unknown, 12/13/19) VANCOMYCIN (Verified Allergy, Unknown, 12/13/19) Uncoded Allergies: CONTRAST (Allergy, Unknown, 12/13/19) ERYTHROMYCIN (Allergy, Unknown, 12/13/19) Subjective above noted no new complaints d/w patient re results Objective Last 24 Hour Vital Signs Date Time Temp Pulse Resp B/P (MAP) Pulse Ox O2 Delivery O2 Flow Rate FiO2 12/22/19 16:00 98.2 78 18 126/61 (82) 92 12/22/19 13:30 Room Air 12/22/19 13:30 Room Air 12/22/19 12:08 97.3 80 18 114/66 (82) 95 12/22/19 08:30 Room Air 12/22/19 08:13 72 146/71 12/22/19 08:09 146/71 12/22/19 08:00 98.3 80 18 155/89 (111) 99 12/22/19 07:45 72 18 97 Room Air 21 12/22/19 07:43 74 16 97 Room Air 21 12/22/19 04:00 98.4 72 20 146/71 (96) 99 12/22/19 01:39 77 16 96 Room Air 21 12/22/19 01:39 75 16 96 Room Air 21 12/21/19 21:00 Room Air 12/21/19 20:26 74 16 96 Room Air 21 12/21/19 20:11 69 16 94 Room Air 21 12/21/19 20:00 98.2 70 18 129/77 (94) 99 Intake and Output 12/21/19 12/22/19 19:00 07:00 Intake Total 1665 ml 1375 ml Balance 1665 ml 1375 ml Intake Oral 840 ml 700 ml IV Total 825 ml 675 ml # Voids 6 # Bowel Movements 1 Height (Feet): 4 Height (Inches): 10.00 Weight (Pounds): 153 Beverly Garcia MD Dec 22, 2019 16:31
--- NOTE | 2019-12-22 18:10 | NUR ---
nurse notes 180 charge nurse Leanna notified , per patient the son can't come and pick her up because he needs to go to work , he will come and pickling operator the patient sheela, [id number] called and left message to Dr Turcios awaiting for his response melida manley
--- NOTE | 2019-12-22 18:58 | NUR ---
NURSE NOTES: noted with discharge order. Pt stated she has no one to pick her up tonight but tomorrow in AM. Dr. Turcios made aware.
--- NOTE | 2019-12-22 19:37 | NUR ---
HAND-OFF: Report given to PRIYANKA BARTH.accordingly patient resting comfortably PRIYANKA manley
[2019-12-22 19:48] VITALS: BP 121/58
--- NOTE | 2019-12-22 19:57 | NUR ---
NURSE NOTES: Received patient awake, alert, verbal, ambulatory, resting in bed, comfortable, no complaints.
[2019-12-23] MEDS: Albuterol 90mcg Inhaler 8gm INH SCH ×2 (00:36→07:00)
[2019-12-23 04:38] VITALS: BP 103/64
[2019-12-23] MEDS: NovoLOG Insulin Flexpen SUBQ SCH (06:22)
--- NOTE | 2019-12-23 07:00 | NUR ---
NURSE NOTES: Patient discharged home as ordered fetched by family(son).
--- NOTE | 2019-12-23 08:31 | General Progress Note ---
Assessment/Plan Problem List: (1) Generalized weakness ICD Codes: R53.1 - Weakness SNOMED: 34080613 (2) Colitis ICD Codes: K52.9 - Noninfective gastroenteritis and colitis, unspecified SNOMED: 08579779 (3) Lupus ICD Codes: M32.9 - Systemic lupus erythematosus, unspecified SNOMED: 292156340 Status: stable, progressing Assessment/Plan: couldnt get ride home yesterday. no fever or chills. decreased abd pain. no diarrhea Subjective ROS Limited/Unobtainable: No Constitutional: Reports: malaise, weakness HEENT: Reports: no symptoms Cardiovascular: Reports: no symptoms Gastrointestinal/Abdominal: Reports: abdominal pain Genitourinary: Reports: no symptoms Neurologic/Psychiatric: Reports: no symptoms Endocrine: Reports: no symptoms Hematologic/Lymphatic: Reports: anemia Allergies: Coded Allergies: ADHESIVE TAPE (Verified Allergy, Unknown, 12/13/19) DROPERIDOL (Verified Allergy, Unknown, 12/13/19) IBUPROFEN (Verified Allergy, Unknown, 12/13/19) LATEX (Verified Allergy, Unknown, 12/13/19) MORPHINE (Verified Allergy, Unknown, 12/13/19) VANCOMYCIN (Verified Allergy, Unknown, 12/13/19) Uncoded Allergies: CONTRAST (Allergy, Unknown, 12/13/19) ERYTHROMYCIN (Allergy, Unknown, 12/13/19) All Systems: reviewed and negative except above Subjective no complaints.pain controlled. no nausea or vomiting. pain controlled. Objective Last 24 Hour Vital Signs Date Time Temp Pulse Resp B/P (MAP) Pulse Ox O2 Delivery O2 Flow Rate FiO2 12/23/19 04:38 97.7 70 18 103/64 (77) 92 12/23/19 00:39 78 18 97 Room Air 21 12/23/19 00:36 77 18 96 Room Air 21 12/22/19 20:39 80 18 96 Room Air 21 12/22/19 20:38 Room Air 12/22/19 20:31 Room Air 12/22/19 19:48 98.1 78 18 121/58 (79) 96 12/22/19 16:00 98.2 78 18 126/61 (82) 92 12/22/19 13:30 Room Air 12/22/19 13:30 Room Air 12/22/19 12:08 97.3 80 18 114/66 (82) 95 12/22/19 08:30 Room Air Intake and Output 12/22/19 12/23/19 19:00 07:00 Intake Total 1953 ml 1040 ml Balance 1953 ml 1040 ml Intake Oral 300 ml IV Total 753 ml 740 ml Other 1200 ml # Voids 4 # Bowel Movements 1 Height (Feet): 4 Height (Inches): 10.00 Weight (Pounds): 153 Objective General Appearance: WD/WN, alert Neck: supple Cardiovascular: normal rate, regular rhythm Respiratory/Chest: chest wall non-tender, lungs clear, normal breath sounds, no respiratory distress, no accessory muscle use Abdomen: normal bowel sounds, non tender, soft, no organomegaly, no mass Edema: no edema noted Arm (L), no edema noted Arm (R), no edema noted Leg (L), no edema noted Leg (R), no edema noted Pedal (L), no edema noted Pedal (R), no edema noted 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
--- NOTE | 2019-12-23 16:31 | NUR ---
CASE MANAGEMENT: REVIEW 12/21/2019 SI: S/P EGD + COLONOSCOPY . LUPUS . COLITIS 98.5 75 18 132/68 96% ROOM AIR IS: IV ROCEPHIN QD TOPROL XL PO QD ZENPEP PO TID PLAQUENIL PO BID GABAPENTIN PO TID METFORMIN PO TID ELIQUIS PO BID ASPIRIN PO QD : 4E MED SURG UNIT DCP: PATIENT IS FROM HOME PLAN: EGD + COLONOSCOPY -COMPLETE HIGH FIBER DIET CASE MANAGEMENT: REVIEW 12/22/2019 SI: S/P EGD + COLONOSCOPY . LUPUS . COLITIS 98.5 75 18 132/68 96% ROOM AIR IS: TOPROL XL PO QD ZENPEP PO TID PLAQUENIL PO BID GABAPENTIN PO TID METFORMIN PO TID ELIQUIS PO BID ASPIRIN PO QD : 4E MED SURG UNIT DCP: PATIENT IS FROM HOME PLAN: DC IN AM
--- NOTE | 2019-12-23 16:54 | NUR ---
*-* INSURANCE *-* ALL CLINICALS AND REVIEWS HAVE BEEN FAXED TO: [employer] HARRIS:EDA REF# [id number] P: [phone] OPT. 2 EXT. [id number] F: [phone]
--- NOTE | 2019-12-26 15:59 | NUR ---
*-* INSURANCE *-* NO D/C SUMMARY IN THE SYSTEM.
--- NOTE | 2019-12-27 15:00 | NUR ---
*-* INSURANCE *-* NO D/C SUMMARY IN THE SYSTEM.
--- NOTE | 2019-12-30 16:57 | NUR ---
*-* INSURANCE *-* NO D/C SUMMARY IN THE SYSTEM.
--- NOTE | 2019-12-31 16:57 | NUR ---
*-* INSURANCE *-* NO D/C SUMMARY IN THE SYSTEM.
--- NOTE | 2020-01-02 13:47 | CDS Physician Query ---
Clarification is required for compliance, coding accuracy, and to reflect severity of illness for this patient Dear Dr. Turcios Date: 01.02.20 CDS: Andriy Weathers A diagnosis of " Possible Pneumonia" is documented, patient received IV ceftriaxone for a week. CT of chest showed consolidative atelectasis. Please specify if pneumonia was: [x ] Ruled in [ ] Ruled out [ ] Not Applicable Present on Admission: [ x] Yes [ ] No [ ] Clinically Undetermined Physician signature Date Please also document in your Progress Notes and/or Discharge Summary and indicate if the condition was present on admission. VENUD
== END 2019-12-23 07:00 | disposition home or self-care (01) | DRG 393 ==
LOC: EDBD 15:41 → EMR 16:00 → 4E 19:05 → EDBEDREQ 20:35
PROC: 0DJD8ZZ Inspection of Lower Intestinal Tract, Via Natural or Artificial Opening Endoscopic (ICD-10-PCS; principal; 2019-12-21)
PROC: 0DJ08ZZ Inspection of Upper Intestinal Tract, Via Natural or Artificial Opening Endoscopic (ICD-10-PCS; principal; 2019-12-21)
DX: K64.8 Other hemorrhoids (principal); J18.9 Pneumonia, unspecified organism; K52.9 Noninfective gastroenteritis and colitis, unspecified; M32.9 Systemic lupus erythematosus, unspecified; J40 Bronchitis, not specified as acute or chronic; E11.9 Type 2 diabetes mellitus without complications; M06.9 Rheumatoid arthritis, unspecified; Z86.718 Personal history of other venous thrombosis and embolism; Z79.01 Long term (current) use of anticoagulants; D64.9 Anemia, unspecified
CPT/HCPCS: 36415; 71250; 74176; 80053; 81003; 82270; 82962; 83036; 83690; 85025; 85651; 86140; 86850; 86900; 86901; 87324; 93306; 94003; 94150; 94640; 94664; 96361; 96374; 96375; 99285; J1815; J2405; J7030